=== PATIENT | female | born 1980 | race Caucasian/White ===

== ENCOUNTER 2020-01-12 08:07 | Emergency (ER) | payer BC, SELFPAY ==
[2020-01-12 08:18] VITALS: BP 106/74; PULSE 85; RESP 16; TEMP 36.8; O2SAT 100
--- NOTE | 2020-01-12 08:43 | ED.GENADULT ---
HPI - General Adult General Chief complaint: Ear Stated complaint: Right Ear Pain/Sore Throat Time Seen by Provider: 01/12/20 08:40 Source: patient and RN notes reviewed Mode of arrival: ambulatory Limitations: no limitations History of Present Illness HPI narrative: 39-year-old female presents with concern for sore throat and right ear pain that started yesterday. Reports green nasal drainage. Reports taking Motrin for pain. MD complaint: Sore throat Related Data Home Medications Medication Instructions Recorded Confirmed Benlysta 01/12/20 hydroxychloroquine [Plaquenil] 200 mg PO DAILY 01/12/20 01/12/20 levothyroxine 137 mcg PO DAILY 01/12/20 01/12/20 lisinopril 20 mg PO DAILY 01/12/20 01/12/20 norgestimate-ethinyl estradiol 1 tablet PO DAILY 01/12/20 01/12/20 [Estarylla] omeprazole 20 mg PO DAILY 01/12/20 01/12/20 Allergies Allergy/AdvReac Type Severity Reaction Status Date / Time latex Allergy Unknown Unknown Verified 01/12/20 08:29 Sulfa (Sulfonamide Allergy Unknown Rash Verified 01/12/20 08:29 Antibiotics) Review of Systems Review of Systems: Narrative: CONSTITUTIONAL: Reports malaise. Denies chills, sweats, or fever. EYES: Denies visual changes, redness, or discharge. ENT: Reports rhinorrhea, sore throat, right otalgia and sore throat. Denies congestion, sinus pain CARDIOVASCULAR: Denies chest pain, palpitations, or edema. RESPIRATORY: Denies cough or dyspnea. GASTROINTESTINAL: Denies abdominal pain, nausea, vomiting, diarrhea SKIN: Denies rash or itching. MUSCULOSKELETAL: Denies myalgia. NEUROLOGIC: Denies headache. All systems reviewed & are unremarkable except as noted in HPI and below PMFSH Family History Family History (Updated 07/12/16 @ 13:38 by DOCTOR UNKNOWN) Father Family history of thyroid disease Grandparent Family history of cardiovascular disease Social History Social History Smoking status: Never smoker Alcohol intake: current Gender identity (if verbalized by the patient): Female Comments At time of signature, agree with nursing past medical, surgical, social and family history. There is no relevant family history pertinent to the presenting complaint Exam Narrative: Exam Narrative: GENERAL: Well-appearing, well-nourished, and in no acute distress. HEAD: Normocephalic, atraumatic. EYES: PERRLA, conjunctivae clear ENT: Nares clear, turbinates pink, clear discharge. Mucous membranes moist. Left TM pearly su with dull light reflex right TM mildly erythematous; no tragal tenderness. Oropharynx erythematous without lesions. Tonsils not enlarged and without exudate, no drooling, no hoarseness, no trismus. NECK: Supple. No lymphadenopathy CHEST: Clear to auscultation, breath sounds equal. No wheezing, rhonchi, rales, or stridor. No respiratory distress, speaks in full sentences. HEART: Regular rate and rhythm. No murmur heard. Normal peripheral pulses. SKIN: Warm, dry, no rash. NEURO: Alert and oriented x3. PSYCH: Normal mood and affect Course Course Emergency Course: Patient is aware of diagnosis, understands and agrees to treatment plan. Anticipatory guidance given. Patient agrees to follow-up as directed and is aware of reasons to seek care at the emergency department. Portions of this record may have been created with voice recognition software Vital Signs Vital signs: Vital Signs Temperature 98.2 F 01/12/20 08:18 Pulse Rate 85 01/12/20 08:18 Respiratory Rate 16 01/12/20 08:18 Blood Pressure 106/74 01/12/20 08:18 Pulse Oximetry 100 01/12/20 08:18 Temperature 98.2 F 01/12/20 08:18 Pulse Rate 85 01/12/20 08:18 Respiratory Rate 16 01/12/20 08:18 Blood Pressure 106/74 01/12/20 08:18 Pulse Oximetry 100 01/12/20 08:18 Reviewed. Medical Decision Making MDM Narrative Medical decision making narrative: Differential diagnosis considered: Strep pharyngitis, allergic rhinitis, upper respiratory tract infection, sinusitis, rh
== END 2020-01-12 08:53 | disposition home or self-care (01) ==
PROVIDERS: Emergency Provider Nurse Practitioner; PCP Physician Assistant
DX: J02.0 Streptococcal pharyngitis (principal)
CPT/HCPCS: 87880; 99213; G0463

== ENCOUNTER 2020-04-17 11:03 | Emergency (ER) | payer BC, SELFPAY ==
--- NOTE | 2020-04-17 11:17 | ED.SKABFB ---
HPI - Skin/Abscess/Foreign Bdy General Chief complaint: Skin/Abscess/Foreign Body Stated complaint: Rash Time Seen by Provider: 04/17/20 11:18 Source: patient and RN notes reviewed History of Present Illness HPI narrative: Patient is a 39-year-old female who presents the urgent care with complaints of poison vita to the left upper leg, left forearm and right forearm. Patient states that she was working in her yard and noticed the areas on Saturday. Patient states that she is used Benadryl cream, oral Benadryl, calamine and hydrocortisone to the area without much improvement. Patient states that it just continues to spread . Patient states that she has not knowingly continued to come in contact with the poison vita. No other acute complaints. Denies any areas to the face or around the eyes. No acute distress noted. Patient aware the plan of care. Related Data Home Medications Medication Instructions Recorded Confirmed Benlysta 01/12/20 hydroxychloroquine [Plaquenil] 200 mg PO DAILY 01/12/20 01/12/20 levothyroxine 137 mcg PO DAILY 01/12/20 01/12/20 lisinopril 20 mg PO DAILY 01/12/20 01/12/20 norgestimate-ethinyl estradiol 1 tablet PO DAILY 01/12/20 01/12/20 [Estarylla] omeprazole 20 mg PO DAILY 01/12/20 01/12/20 Allergies Allergy/AdvReac Type Severity Reaction Status Date / Time latex Allergy Unknown Unknown Verified 01/12/20 08:29 Sulfa (Sulfonamide Allergy Unknown Rash Verified 01/12/20 08:29 Antibiotics) Review of Systems Review of Systems: Narrative: CONSTITUTIONAL: Denies fever, chills, or sweats. EYES: Denies visual changes, redness, or discharge. ENT: Denies rhinorrhea, congestion, sore throat, or otalgia. CARDIOVASCULAR: Denies chest pain, palpitations, or edema. RESPIRATORY: Denies cough or dyspnea. GASTROINTESTINAL: Denies abdominal pain, nausea, vomiting, or diarrhea. GENITOURINARY: Denies dysuria or hematuria. SKIN: Reports of itchy red rash/poison vita to left upper leg, left forearm, right forearm MUSCULOSKELETAL: Denies back pain, joint pain, or myalgia. NEUROLOGIC: Denies headache, numbness, or weakness. All other systems reviewed are negative, except as documented in HPI. [facility] Family History Family History (Updated 07/12/16 @ 13:38 by DOCTOR UNKNOWN) Father Family history of thyroid disease Grandparent Family history of cardiovascular disease Social History Social History Smoking status: Never smoker Alcohol intake: current Gender identity (if verbalized by the patient): Female Comments At the time of my signature, I reviewed and agree with the nursing past medical, surgical, social, and family history. There is no relevant family history pertinent to the patient complaint. Exam Narrative: Exam Narrative: GENERAL: This is a well-nourished, well-developed patient, in no apparent distress. HEAD: normocephalic, atraumatic. EYES: PERRL. Sclera clear/white. Vision is grossly intact. EARS: External ears normal NOSE: External nose normal with no obvious nasal discharge THROAT: Mucous membranes moist NECK: Neck supple SKIN: Nonpustular dermatitis noted to the left upper thigh, left calf, right forearm and left forearm NEURO: awake, alert, and oriented to person, place and time. There were no obvious focal neurologic abnormalities. EXTREMITIES: No clubbing, cyanosis, or edema. Course Vital Signs Vital signs: Vital Signs Temperature 97.7 F 04/17/20 11:24 Pulse Rate 110 H 04/17/20 11:24 Respiratory Rate 04/17/20 11:24 Blood Pressure 125/96 H 04/17/20 11:24 Pulse Oximetry 100 04/17/20 11:24 Temperature 97.7 F 04/17/20 11:24 Pulse Rate 110 H 04/17/20 11:24 Respiratory Rate 20 04/17/20 11:24 Blood Pressure 125/96 H 04/17/20 11:24 Pulse Oximetry 100 04/17/20 11:24 Reviewed?patient is informed that they may have pre-hypertension or hypertension based on a blood pressure reading in the department. I recommend the patient call the primary care pr
[2020-04-17 11:24] VITALS: BP 125/96; PULSE 110; RESP 20; TEMP 36.5; O2SAT 100
== END 2020-04-17 11:37 | disposition home or self-care (01) ==
PROVIDERS: Emergency Provider Nurse Practitioner Family; PCP Physician Assistant
DX: L23.7 Allergic contact dermatitis due to plants, except food (principal); I10 Essential (primary) hypertension
CPT/HCPCS: 99213; G0463

== ENCOUNTER → 2020-07-16 07:43 | Outpatient (CLI) | payer BC, SELFPAY ==
--- NOTE | ~2020-07-16 | MR_ITS ---
EXAMINATION: MR knee RT wo con DATE: 07/16/2020 08:35 INDICATION: Right knee pain. TECHNIQUE: Magnetic resonance imaging (MRI) of the right knee was performed without intravenous contr ast. Sequences included axial PD-weighted FS FSE, coronal PD-weighted FSE and PD-weighted FS FSE, sag ittal PD-weighted FSE, and sagittal T2-weighted FS FSE. COMPARISON: None. FINDINGS: Medial compartment: Medial meniscus is normal. There is shallow partial-thickness cartilage loss of femoral condyle invol ving the central articular surface with mild subchondral edema like marrow signal intensity. There is cartilage surface irregularity of tibial condyle. Lateral compartment: Lateral meniscus is normal. There is a 12 x 13 x 6 mm ganglion cyst anterior to anterior horn of late ral meniscus. There is cartilage surface irregularity of tibial condyle and femoral condyle. Patellofemoral compartment: There is deep partial thickness cartilage loss of patellar median ridge and lateral facet with modera te subchondral edema-like marrow signal intensity. Trochlear cartilage is normal. Ligaments and tendons: The anterior and posterior cruciate ligaments are normal. Medial collateral ligament and lateral luis ateral ligament complex are normal. There is mild patellar tendinopathy. Fluid: There is a small knee joint effusion. IMPRESSION: 1. Moderate chondrosis of patellofemoral compartment and mild chondrosis of medial and patellofemoral compartments. 2. Small knee joint effusion. 3. 13 mm ganglion cyst anterior to anterior horn of lateral meniscus. Reviewed, dictated and finalized at location A. IMPRESSION: 1. Moderate chondrosis of patellofemoral compartment and mild chondrosis of med ial and patellofemoral compartments. 2. Small knee joint effusion. 3. 13 mm ganglion cyst anterior to anterior horn of lateral meniscus.
--- NOTE | ~2020-07-16 | MR_ITS ---
EXAMINATION: MR knee LT wo con DATE: 07/16/2020 08:28 INDICATION: Left knee pain. TECHNIQUE: Magnetic resonance imaging (MRI) of the left knee was performed without intravenous contra st. Sequences included axial PD-weighted FS FSE, coronal PD-weighted FSE and PD-weighted FS FSE, sagi ttal PD-weighted FSE, and sagittal T2-weighted FS FSE. COMPARISON: Left knee radiographs 11/06/2011 FINDINGS: Medial compartment: Medial meniscus is normal. There is shallow partial-thickness cartilage loss of femoral condyle and t ibial condyle, worst at the central articular surfaces. Lateral compartment: Lateral meniscus is normal. Lateral compartment cartilage is normal. Patellofemoral compartment: There is shallow partial-thickness cartilage loss of patellar median ridge and lateral facet with mil d subchondral edema-like signal intensity. Trochlear cartilage is normal. Ligaments and tendons: The anterior and posterior cruciate ligaments are normal. There are changes of prior sprains of media l collateral ligament and fibular collateral ligament characterized by increased signal intensity pro ximally. There is mild patellar tendinopathy. Fluid: There is a small knee joint effusion. There is mild prepatellar and superficial infrapatellar bursiti s. IMPRESSION: 1. Mild chondrosis of medial and patellofemoral compartments. 2. Small knee joint effusion. Reviewed, dictated and finalized at location A.
== END ==
PROVIDERS: PCP Physician Assistant
DX: M25.461 Effusion, right knee (principal); M25.462 Effusion, left knee
CPT/HCPCS: 73721

== ENCOUNTER 2021-03-04 08:29 | Emergency (ER) | payer BC, SELFPAY ==
--- NOTE | 2021-03-04 08:38 | ED.SKABFB ---
HPI - Skin/Abscess/Foreign Bdy General Chief complaint: Skin/Abscess/Foreign Body Stated complaint: Rash Time Seen by Provider: 03/04/21 08:39 Source: patient and RN notes reviewed Mode of arrival: ambulatory Limitations: no limitations History of Present Illness HPI narrative: 40 yo female presents to the [facility] with C/O a rash to the left forearm for 1 week. Patient states that she had gotten into poison vita and it just keeps getting worse. Has tried multiple [id number] products with no relief. Small blisters noted. One 3 cm diameter red area center coverage of left forearm. Full range of motion of the wrist and elbow. Strong cyber analyst noted. Positive radial pulse. Capillary refill under 2 seconds. Related Data Home Medications Medication Instructions Recorded Confirmed Benlysta 01/12/20 hydroxychloroquine [Plaquenil] 200 mg PO DAILY 01/12/20 03/04/21 levothyroxine 137 mcg PO DAILY 01/12/20 03/04/21 lisinopril 20 mg PO DAILY 01/12/20 03/04/21 norgestimate-ethinyl estradiol 1 tablet PO DAILY 01/12/20 03/04/21 [Estarylla] omeprazole 20 mg PO DAILY 01/12/20 03/04/21 Allergies Allergy/AdvReac Type Severity Reaction Status Date / Time latex Allergy Unknown Unknown Verified 03/04/21 08:37 Sulfa (Sulfonamide Allergy Unknown Rash Verified 03/04/21 08:37 Antibiotics) Review of Systems Review of Systems: Narrative: CONSTITUTIONAL: Denies fever, chills, or sweats. CARDIOVASCULAR: Denies chest pain, palpitations, or edema. RESPIRATORY: Denies cough or dyspnea. SKIN: Blistery rash that itches. MUSCULOSKELETAL: Denies back pain, joint pain, or myalgia. NEUROLOGIC: Denies headache, numbness, or weakness. PSYCHIATRIC: Denies anxiety or depression. All other systems reviewed are negative, except as documented in HPI. [facility] Family History Family History Father Family history of thyroid disease Grandparent Family history of cardiovascular disease Social History Social History Smoking status: Never smoker Alcohol intake: current Gender identity (if verbalized by the patient): Female Comments At the time of my signature, I reviewed and agree with the nursing past medical, surgical, social, and family history. There is no relevant family history pertinent to the patient complaint. Exam Narrative: Exam Narrative: GENERAL: This is a well-nourished, well-developed patient, in no apparent distress. HEAD: normocephalic, atraumatic. EYES: PERRL. Sclera clear/white. Vision is grossly intact. EARS: External ears normal. CARDIOVASCULAR: Regular rate and rhythm without murmurs, gallops, or rubs. RESPIRATORY: Clear to auscultation. Breath sounds equal bilaterally. No wheezes, rales, or rhonchi. SKIN: warm and dry. blistery rash left forearm otherwise good texture and turgor. Red warm area to the left forearm 3cm in Diameter. NEURO: awake, alert, and oriented to person, place and time. There were no obvious focal neurologic abnormalities. EXTREMITIES: No joint tenderness, effusion, or edema noted. BACK: Nontender without deformity. Skin: Full body images: 1. 3cm red warm area with small fluid filled blisters that extend outward. Course Vital Signs Vital signs: Vital Signs Temperature 97.1 F L 03/04/21 08:39 Pulse Rate 75 03/04/21 08:39 Respiratory Rate 16 03/04/21 08:39 Blood Pressure 146/98 H 03/04/21 08:39 Temperature 97.1 F L 03/04/21 08:39 Pulse Rate 75 03/04/21 08:39 Respiratory Rate 16 03/04/21 08:39 Blood Pressure 146/98 H 03/04/21 08:39 Reviewed. Patient reports taking blood pressure medication daily and states this is her normal blood pressure MDM - Skin/Abscess/Foreign Bdy MDM Narrative Medical decision making narrative: Discharge instructions reviewed with patient, as well as provided in writing per nursing staff. The instructions also include specific and
[2021-03-04 08:39] VITALS: BP 146/98; PULSE 75; RESP 16; TEMP 36.2
== END 2021-03-04 08:50 | disposition home or self-care (01) ==
PROVIDERS: Emergency Provider Nurse Practitioner; PCP Physician Assistant
DX: L23.7 Allergic contact dermatitis due to plants, except food (principal); I10 Essential (primary) hypertension; E03.9 Hypothyroidism, unspecified; M32.9 Systemic lupus erythematosus, unspecified
CPT/HCPCS: 99213; G0463

== ENCOUNTER 2021-07-25 18:05 | Emergency (ER) | payer BC, SELFPAY ==
[2021-07-25 18:32] VITALS: BP 110/81; PULSE 104; RESP 16; TEMP 36.3; O2SAT 99
--- NOTE | 2021-07-25 19:09 | ED.SKABFB ---
HPI - Skin/Abscess/Foreign Bdy General Chief complaint: Skin/Abscess/Foreign Body Stated complaint: sores on scalp Time Seen by Provider: 07/25/21 19:09 Source: patient, RN notes reviewed and old records reviewed Mode of arrival: ambulatory Limitations: no limitations History of Present Illness HPI narrative: 40 year old female who presents to [facility] with complaints of lesion to the back of her head on scalp that has been there for about 2 weeks. She bumped it while brushing her hair and had some drainage from it. Patient states that she gets these lesions on her head and also gets small mouth ulcers usually twice a year and they usually go away, thinks are related to her Lupus.Patient reports that area to back of scalp is tender and is concerned for possible infection. She denies any fevers, chills or any sweats or exacerbation of Lupus symptoms. Related Data Home Medications Medication Instructions Recorded Confirmed hydroxychloroquine [Plaquenil] 200 mg PO DAILY 01/12/20 07/25/21 levothyroxine 137 mcg PO DAILY 01/12/20 07/25/21 lisinopril 20 mg PO DAILY 01/12/20 07/25/21 norgestimate-ethinyl estradiol 1 tablet PO DAILY 01/12/20 07/25/21 [Estarylla] omeprazole 20 mg PO DAILY 01/12/20 07/25/21 Allergies Allergy/AdvReac Type Severity Reaction Status Date / Time latex Allergy Mild Rash Verified 07/25/21 18:50 Sulfa (Sulfonamide Allergy Mild Hives Verified 07/25/21 18:50 Antibiotics) Review of Systems Review of Systems: CONSTITUTIONAL: Denies fever, chills, or sweats. EYES: Denies visual changes, redness, or discharge. ENT: Denies rhinorrhea, congestion, sore throat, or otalgia. CARDIOVASCULAR: Denies chest pain, palpitations, or edema. RESPIRATORY: Denies cough or dyspnea. GASTROINTESTINAL: Denies abdominal pain, nausea, vomiting, or diarrhea. GENITOURINARY: Denies dysuria or hematuria. SKIN: Denies rash or itching.small raised scabbed area noted to back of head in scalp MUSCULOSKELETAL: Denies back pain, joint pain, or myalgia. NEUROLOGIC: Denies headache, numbness, or weakness. PSYCHIATRIC: History of anxiety or depression. All systems reviewed & are unremarkable except as noted in HPI and below PMFSH Past Medical History Medical History (Updated 07/29/21 @ 13:10 by Mishel Bentley NP) Anxiety and depression GERD (gastroesophageal reflux disease) Hypertension Hypothyroid Lupus (systemic lupus erythematosus) UTI (urinary tract infection) Surgical History Surgical History (Updated 07/29/21 @ 13:02 by Mishel Bentley NP) No history of previous surgery Family History Family History (Updated 07/29/21 @ 13:03 by Mishel Bentley NP) Father Family history of thyroid disease Grandparent Family history of cardiovascular disease Other Diabetes mellitus Social History Social History (Updated 07/29/21 @ 10:47 by Mishel Bentley NP) Smoking status: Never smoker Alcohol intake: current Substance use: never Living arrangements: with family Gender identity (if verbalized by the patient): Female Comments At time of signature, agree with nursing past medical, surgical, social and family history. There is no relevant family history pertinent to the presenting complaint Exam Narrative: GENERAL: Well-appearing, well-nourished, and in no acute distress. HEAD: Normocephalic, atraumatic. EYES: PERRLA and EOMI. ENT: Nares clear, no rhinorrhea or epistaxis. Mucous membranes moist. NECK: Supple.no lymphadenopathy CHEST: Clear to auscultation. No respiratory distress.SAO2 99% on room air HEART: Regular rate and rhythm. No murmur heard. Normal peripheral pulses. ABDOMEN: Soft, nontender, nondistended, normal active bowel sounds. EXTREMITIES: Normal range of motion. No edema. SKIN: Warm, dry, no rash.1cm scabbed lesion to the back of head on scalp with no drainage noted,no redness or induration of tissue, some tenderness reported on palpation NEURO: No focal deficits. Alert and oriente
== END 2021-07-25 19:30 | disposition home or self-care (01) ==
PROVIDERS: Emergency Provider Registered Nurse
DX: L02.811 Cutaneous abscess of head [any part, except face] (principal); I10 Essential (primary) hypertension; E03.9 Hypothyroidism, unspecified; M32.9 Systemic lupus erythematosus, unspecified
CPT/HCPCS: 99213; G0463

== ENCOUNTER 2022-12-22 09:40 | Outpatient (CLI) | payer BC, SELFPAY ==
[2022-12-22 10:06] LABS: Hematocrit 38.7 % (37.0-47.0); Hemoglobin 12.7 g/dL (12.0-15.0)
== END 2022-12-22 09:41 | disposition home or self-care (01) ==
LOC: ANHLAB 09:41
PROVIDERS: PCP Physician Assistant; Visit Provider Obstetrics & Gynecology
DX: N92.6 Irregular menstruation, unspecified (principal); Z01.818 Encounter for other preprocedural examination
CPT/HCPCS: 36415; 85014; 85018

== ENCOUNTER 2022-12-28 02:58 | Day surgery (SDC) | payer BC, SELFPAY ==
[2022-12-20 16:15] VITALS: BMI 33.7
--- NOTE | 2022-12-20 16:38 | PC.NURSE ---
Report to the Outpatient Waiting Room, entrance under the green pavilion located off [facility], at time 0600 on date 12/28/22. Planned Procedure Time: 0730_. Time changes happen often and if your time is changed the preop area will call you the afternoon before. - You and your visitor will be asked to self-screen and do not enter if you have any COVID symptoms. - Only one visitor is requested with a max of two and NO children visitors are allowed at this time. - The patient visitor may be requested to leave or wait in car when not with patient due to distancing restrictions. - A mask is optional within the hospital. Patients may have clear liquids (water, carbonated beverages, clear teas, apple juice) until 3 hours prior to surgery with a maximum of 20 ounces. - No food from midnight until time of surgery - Infants may have breast milk until 4 hours before surgery, infant formula 6 hours prior to surgery. - Children will be allowed to drink immediately following surgery. If applicable, please bring a bottle or sippy cup to assist with drinking. Juice, water, soda, and popsicles are readily available. For infants on formula, please bring formula the day of surgery. Pacifiers are allowed. Take the following medications with a SIP of water the morning of surgery: _levothyroxine, wellbutrin__ Medications to discontinue per physician Date to take last dose Please no make-up, nail vietnamese, hairspray, perfume, deodorant, or body powder the day of surgery. No jewelry (including any body piercings) or valuables the day of surgery, leave them at home. Please take a shower or bath the night before, or the morning of, surgery with an antibacterial soap. Wear comfortable, loose fitting clothing. Children are encouraged to wear pajamas. - Jewelry must be removed prior to entering the operating room. Rings and piercings that are not removed may be cut off. - The hospital will not accept responsibility for valuables. - Please leave all valuables, including medications, at home the day of surgery. If you are going home after surgery, a licensed refrigerated national truck driver must drive you home. - NO public transportation without another adult if you receive anesthesia. - We recommend that an adult stay with you for 24 hours following discharge. - We also recommend that you do not drive, make important decision, drink alcoholic beverages, or take any drugs that were not prescribed by your health care provider for at least 24 hours after your discharge time. For Pediatric surgeries, we recommend two adults accompany the child home. Follow any additional instructions given to you from your surgeon. If you or anyone in your household have experienced Covid symptoms in the past week, please notify your surgeon or the nurse liaison at the phone number below for possible testing. Telephone instructions given to _Sho King_and asked if any additional questions and then verbalized understanding. Patient advised to call surgeon office or pre surgery nurse liaison [phone] if any additional questions.
--- NOTE | 2022-12-25 12:23 | PM.IMHP ---
H&P: HPI History of Present Illness Date/Time: 12/25/22 12:23 Chief Complaint: Heavy bleeding Narrative: This is a 40 female 1 para 2 admitted for hysteroscopy dilatation curettage secondary to excessive heavy bleeding and thickening in the uterus. The patient complained of heavy bleeding and has a hemoglobin. Ultrasound shows an endometrial canal it appears thickened heterogenous with increased blood flow within the endometrial canal. Risks and benefits of this procedure reviewed including not exclusive of aspiration pneumonia bleeding transfusion infection, perforation injury to bowel, bladder, ureters, or other internal organs with need for open laparotomy. She received the ACOG handout entitled hysteroscopy as well as dilatation curettage respectively. She had all questions answered and asked to proceed PMFSH Past Medical History Medical History Anxiety and depression GERD (gastroesophageal reflux disease) Hypertension Hypothyroid Lupus (systemic lupus erythematosus) UTI (urinary tract infection) Surgical History Surgical History No history of previous surgery Family History Family History Father Family history of thyroid disease Grandparent Family history of cardiovascular disease Other Diabetes mellitus Social History Social History Years smoked: 0.5 Smoking status: Former smoker Tobacco type: cigarettes Smoking end date: 12/02/02 Alcohol intake: current Substance use: never Living arrangements: with family Gender identity (if verbalized by the patient): Female Spiritual care concerns: No Meds Home Medications and Allergies Home Medications Medication Instructions Recorded Confirmed Type hydroxychloroquine 200 mg tablet 200 mg PO DAILY 01/12/20 12/20/22 History (Plaquenil) levothyroxine 137 mcg tablet 137 mcg PO DAILY 01/12/20 12/20/22 History lisinopril 20 mg tablet 30 mg PO DAILY 01/12/20 12/20/22 History omeprazole 20 mg tablet,delayed 20 mg PO DAILY 01/12/20 12/20/22 History release belimumab 200 mg/mL subcutaneous 200 mg subcut WEEKLY 12/20/22 12/20/22 History auto-injector (Benlysta) bupropion HCl 150 mg 24 hr tablet, 150 mg PO DAILY 12/20/22 12/20/22 History extended release etonogestrel 0.12 mg-ethinyl 1 vag ring vaginal DAILY 12/20/22 12/20/22 History estradiol 0.015 mg/24 hr vaginal ring (EluRyng) rimegepant 75 mg disintegrating 75 mg PO PRN Migraine Headache 12/20/22 History tablet (Nurtec ODT) Allergies Allergy/AdvReac Type Severity Reaction Status Date / Time latex Allergy Mild Rash Verified 07/25/21 18:50 Sulfa (Sulfonamide Allergy Mild Hives Verified 07/25/21 18:50 Antibiotics) Exam Const: General: cooperative, healthy appearing, comfortable and overweight Orientation/consciousness: oriented to person, oriented to place and oriented to time HENMT: Head: normal to inspection Resp: Effort & Inspection: normal respiratory effort Cardio: Rate: regular rate Rhythm: regular rhythm Heart sounds: S1 normal heart sound present and S2 normal heart sound present GI: Inspection: normal to inspection Auscultation: normal bowel sounds : External Female Exam: normal external appearance Speculum Exam - Vagina: normal appearance of the vagina Speculum Exam - Cervix: normal appearance of the cervix Bimanual exam- vagina & uterus: uterine size normal Bimanual Exam- Adnexa, other: normal adnexae Assessment and Plan Assessment and plan (1) Vaginal bleeding: Code(s): N93.9 - Abnormal uterine and vaginal bleeding, unspecified Status: Acute Plan Hysteroscopy/dilatation and curettage
--- NOTE | 2022-12-28 06:18 | WPDHPUPDATE1 ---
History and Physical Update Update Date/Time: 12/28/22 06:18 History and Physical has been reviewed, including an updated exam of the patient. There are NO changes in the patient's condition. Risks, benefits, and alternatives have been discussed and questions answered. Patient agrees to proceed with procedure.
[2022-12-28 06:30] VITALS: BP 147/102; PULSE 84; RESP 16; TEMP 36.6; O2SAT 100
[2022-12-28] MEDS: ACETAMINOPHEN 500 MG TABLET 1000 MG PO (06:43)
[2022-12-28] MEDS: LACTATED RINGERS 1,000 ML 30 ML IV CONT (06:45)
--- NOTE | 2022-12-28 07:32 | WPDANESEPPF ---
Anes - Initial Pre Proc Eval Procedure: Operation Date: 12/28/22 08:15 Proposed Procedures p Hysteroscopy with Dilation and Curettage - Kaveh Mckeon MD Date/Time: 12/28/22 07:32 Surgeon: Kaveh Mckeon MD Pre Op Diagnosis: Irrg Bleeding Patient Data Age: 42 Gender: F Height: 1.68 m Weight: 97.9 kg Last Vital Signs Temp 36.6 C 12/28/22 06:30 Pulse 84 12/28/22 06:30 Resp 16 12/28/22 06:30 BP 147/102 H 12/28/22 06:30 Pulse Ox 100 12/28/22 06:30 O2 Del Method Room Air 12/28/22 06:30 Allergies Allergy/AdvReac Type Severity Reaction Status Date / Time latex Allergy Mild Rash Verified 12/28/22 07:01 Sulfa (Sulfonamide Allergy Mild Hives Verified 12/28/22 07:01 Antibiotics) Home Medications Medication Instructions Recorded Confirmed Type hydroxychloroquine 200 mg tablet 200 mg PO DAILY 01/12/20 12/28/22 History (Plaquenil) levothyroxine 137 mcg tablet 137 mcg PO DAILY 01/12/20 12/28/22 History lisinopril 20 mg tablet 30 mg PO DAILY 01/12/20 12/28/22 History omeprazole 20 mg tablet,delayed 20 mg PO DAILY 01/12/20 12/28/22 History release belimumab 200 mg/mL subcutaneous 200 mg subcut WEEKLY 12/20/22 12/28/22 History auto-injector (Benlysta) bupropion HCl 150 mg 24 hr tablet, 150 mg PO DAILY 12/20/22 12/28/22 History extended release etonogestrel 0.12 mg-ethinyl 1 vag ring vaginal DAILY 12/20/22 12/28/22 History estradiol 0.015 mg/24 hr vaginal ring (EluRyng) rimegepant 75 mg disintegrating 75 mg PO PRN Migraine Headache 12/20/22 History tablet (Nurtec ODT) hydrocodone 5 mg-acetaminophen 325 1 tablet PO Q4H PRN pain #20 tabs 12/28/22 Rx mg tablet Patient hx anesthesia problems: none Family hx anesthesia problems: none Results Review: All pre-operative results and documents have been reviewed as part of the pre-operative evaluation. [facility] Past Medical History Medical History Anxiety and depression GERD (gastroesophageal reflux disease) Hypertension Hypothyroid Lupus (systemic lupus erythematosus) UTI (urinary tract infection) Surgical History Surgical History No history of previous surgery Family History Family History Father Family history of thyroid disease Grandparent Family history of cardiovascular disease Other Diabetes mellitus Social History Social History Years smoked: 0.5 Smoking status: Former smoker Tobacco type: cigarettes Smoking end date: 12/02/02 Alcohol intake: current Substance use: never Living arrangements: with family Gender identity (if verbalized by the patient): Female Spiritual care concerns: No Anes - Eval Final PreProcedure Day of Procedure 12/28/22 07:32 Patient weight: obese Heart: regular rate and rhythm Lungs: clear to auscultation Airway: Mallampati scale class II Neurological: alert and oriented Last oral intake: >/= 8 hours ASA classification: III Emergent: no Anesthetic plan: proceed Anesthesia type and monitoring: general ETT and standard monitoring Results Review: All pre-operative results and documents have been reviewed as part of the pre-operative evaluation. Informed Consent: The patient's anesthetic plan and its attendant risks and benefits were discussed with the patient/family/POA. Questions were solicited and answers provided to the satisfaction of the patient/family/POA.
[2022-12-28] MEDS: LIDOCAINE HCL 1% PF 30 ML VIAL INFILTRATE (08:27)
--- NOTE | 2022-12-28 08:36 | W.PM.PROC2 ---
Procedure Note - Detailed Date of Procedure 12/28/22 Pre-op Diagnosis Irrg Bleeding Post-op Diagnosis Other (Uterine polyp) Procedure Performed hysteroscopy/ polypectomy/D and C Surgeon Kaveh Mckeon MD Anesthesia MAC and Local Indications this is a 42-year-old female with irregular heavy bleeding refractory to medical therapy Findings uterus sounds to 8cm. A benign-appearing uterine polyp was seen at the fundus Description of Procedure patient was prepped draped in normal sterile fashion placed in dorsal lithotomy position. Under excellent IV sedation weighted speculum placed post fornix vagina. Anterior lip of cervix grasped with single-tooth tenaculum. 2.5cc of 1% xylocaine anesthesia placed at 2, 4, 8, 10:00 a.m. of the cervix. Uterus sounded 8cm. Serial dilatation with fragmented dilators performed followed passes the 5mm visualizing hysteroscope. A the uterine polyp was seen in the polyp forceps was passed it was removed piecemeal. The uterus scraped over the entire 360?. The instruments removed blood loss estimated 5cc all sponge, needle, instrument counts were correct. There were no immediate complications Estimated Blood Loss 5 Tourniquet Time 5 Drains No Packing No Pathology Yes Complications No immediate complications Condition Stable Disposition PACU
[2022-12-28 08:37] VITALS: BP 144/104; PULSE 81; RESP 16; O2SAT 99
[2022-12-28 09:05] VITALS: BP 145/105; PULSE 70; RESP 18
[2022-12-28] MEDS: oxyCODONE HCL (*CRX) 5 MG TAB IR PO (09:18)
[2022-12-28 09:35] VITALS: BP 137/99; PULSE 83; RESP 18
== END 2022-12-28 09:42 | disposition home or self-care (01) ==
PROVIDERS: PCP Physician Assistant; Visit Provider Obstetrics & Gynecology
PROC: 0U5B8ZZ Destruction of Endometrium, Via Natural or Artificial Opening Endoscopic (ICD-10-PCS; CPT 58563; principal; 2022-12-28 08:15)
DX: N93.9 Abnormal uterine and vaginal bleeding, unspecified (principal); N84.0 Polyp of corpus uteri; I10 Essential (primary) hypertension; E03.9 Hypothyroidism, unspecified; M32.9 Systemic lupus erythematosus, unspecified; K21.9 Gastro-esophageal reflux disease without esophagitis; F41.8 Other specified anxiety disorders; Z87.891 Personal history of nicotine dependence; E66.9 Obesity, unspecified; Z68.34 Body mass index [BMI] 34.0-34.9, adult
CPT/HCPCS: 58558; 88305; A9270; J1885; J2250; J2405; J2704; J3010; J7120

== ENCOUNTER 2023-05-13 15:36 | Emergency (ER) | payer BC, SELFPAY ==
--- NOTE | ~2023-05-13 | XR_ITS ---
EXAMINATION: XR tibia fibula LT 2V DATE: 05/13/2023 16:54 INDICATION: Left lower leg cellulitis. TECHNIQUE: 2 views of left tibia and fibula on 4 radiographs were obtained. COMPARISON: Left knee radiographs 11/06/2011 FINDINGS: Bone alignment is normal. No fracture. There is no evidence of osteomyelitis. There is mild tricompartmental osteoarthritis of left knee characterized by tiny marginal osteophytes. No joint sp dequan scarring. No knee joint effusion. IMPRESSION: 1. Mild left knee osteoarthritis. Reviewed, dictated and finalized at location A.
[2023-05-13 15:47] VITALS: BP 146/95; PULSE 112; RESP 16; TEMP 36.4; O2SAT 100
--- NOTE | 2023-05-13 16:11 | ED.GENADULT ---
HPI - General Adult General Chief complaint: Wound/Laceration Stated complaint: wound Time Seen by Provider: 05/13/23 15:52 Source: patient Mode of arrival: ambulatory Limitations: no limitations History of Present Illness HPI narrative: This is a 42-year-old female with PMH of lupus, HTN, hypothyroid who presents to the ED with chief complaint of left ankle worsening cellulitis. Patient was seen recently at an urgent care for cellulitis and has been taking Keflex regularly. Originally she was walking her dog when the leash got caught around her ankle and burn to the ankle. She had a subsequent cellulitis that developed. She has also been using the prescribed Silvadene regularly. Today she states the area is becoming more painful and she is having spreading redness around the wound bed despite taking the antibiotics. Denies any fevers, chills, nausea, vomiting, systemic signs or symptoms She has past medical history of lupus and takes hydroxychloroquine and a weekly biologic injection. Related Data Home Medications Medication Instructions Recorded Confirmed hydroxychloroquine 200 mg tablet 200 mg PO DAILY 01/12/20 12/28/22 (Plaquenil) levothyroxine 137 mcg tablet 137 mcg PO DAILY 01/12/20 12/28/22 lisinopril 20 mg tablet 30 mg PO DAILY 01/12/20 12/28/22 omeprazole 20 mg tablet,delayed 20 mg PO DAILY 01/12/20 12/28/22 release belimumab 200 mg/mL subcutaneous 200 mg subcut WEEKLY 12/20/22 12/28/22 auto-injector (Benlysta) bupropion HCl 150 mg 24 hr tablet, 150 mg PO DAILY 12/20/22 12/28/22 extended release etonogestrel 0.12 mg-ethinyl 1 vag ring vaginal DAILY 12/20/22 12/28/22 estradiol 0.015 mg/24 hr vaginal ring (EluRyng) rimegepant 75 mg disintegrating 75 mg PO PRN Migraine Headache 12/20/22 tablet (Nurtec ODT) Allergies Allergy/AdvReac Type Severity Reaction Status Date / Time latex Allergy Mild Rash Verified 12/28/22 07:01 Sulfa (Sulfonamide Allergy Mild Hives Verified 12/28/22 07:01 Antibiotics) Review of Systems Review of Systems: CONSTITUTIONAL: Denies fever, chills, or sweats. EYES: Denies visual changes, redness, or discharge. ENT: Denies rhinorrhea, congestion, sore throat, or otalgia. CARDIOVASCULAR: Denies chest pain, palpitations, or edema. RESPIRATORY: Denies cough or dyspnea. GASTROINTESTINAL: Denies abdominal pain, nausea, vomiting, or diarrhea. GENITOURINARY: Denies dysuria or hematuria. SKIN: See HPI MUSCULOSKELETAL: Denies back pain, joint pain, or myalgia. NEUROLOGIC: Denies headache, numbness, dizziness, or weakness. PSYCHIATRIC: Denies anxiety or depression. [facility] Past Medical History Medical History Anxiety and depression GERD (gastroesophageal reflux disease) Hypertension Hypothyroid Lupus (systemic lupus erythematosus) UTI (urinary tract infection) Surgical History Surgical History No history of previous surgery Family History Family History Father Family history of thyroid disease Grandparent Family history of cardiovascular disease Other Diabetes mellitus Social History Social History Years smoked: 0.5 Smoking status: Former smoker Tobacco type: cigarettes Smoking end date: 12/02/02 Alcohol intake: current Substance use: never Living arrangements: with family Gender identity (if verbalized by the patient): Female Spiritual care concerns: No Exam Narrative: GENERAL: Well-appearing, well-nourished, and in no acute distress. HEAD: Normocephalic, atraumatic. EYES: PERRLA and EOMI. ENT: Nares clear, no rhinorrhea or epistaxis. Mucous membranes moist. Oropharynx without tonsillar hypertrophy exudate or other lesions. NECK: Supple. No adenopathy or masses. CHEST: No respiratory distress. Cl
[2023-05-13 16:56] LABS: Basophils Percent Auto 0.3 % (0.2-1.2); Eosinophils Percent Auto 0.2 % (0-4.4); Hematocrit 37.9 % (37.0-47.0); Hemoglobin 12.8 g/dL (12.0-15.0); Immature Granulocyte Absolute 0.02 K/mm3 (0.00-0.031); Immature Granulocyte Percent A 0.3 % (0-0.5); Lymphocytes Absolute Auto 0.99 K/mm3 (0.9-3.2); Lymphocytes Percent Auto 14.9 % (18.3-44.2); Mean Corpuscular HGB Conc 33.8 g/dl (32-36); Mean Corpuscular Hemoglobin 31.4 pg (26-34); Mean Corpuscular Volume 92.9 fl (80-100); Mean Platelet Volume 9.4 fl (7.4-10.4); Monocytes Absolute Auto 0.4 K/mm3 (0.1-0.6); Monocytes Percent Auto 5.9 % (2.6-8.5); Neutrophils Absolute Auto 5.2 K/mm3 (1.3-6.7); Neutrophils Percent Auto 78.4 % (45.5-73.1); Platelet Count Result 362 k/mm3 (150-375); Red Blood Count 4.08 M/mm3 (4.2-5.4); Red Cell Distribution Width 13.2 % (11.5-14.5); White Blood Count 6.7 K/mm3 (4.5-10.0)
[2023-05-13 17:05] LABS: Alanine Aminotransferase 19 U/L (6-35); Albumin Level 4.1 g/dL (3.5-5.1); Alkaline Phosphatase 90 U/L (38-126); Anion Gap 8 mmol/L (8-16); Aspartate Amino Transferase 28 U/L (14-36); Bilirubin,Total 0.4 mg/dL (0.2-1.3); Blood Urea Nitrogen 15 mg/dL (7-17); Calcium 8.8 mg/dL (8.4-10.2); Carbon Dioxide 26 mmol/L (22-30); Chloride 104 mmol/L (98-107); Estimated CRCL calculation 154 ml/min; Estimated Glomerular Filt Rate > 60; Glucose 107 mg/dL (65-110); Potassium 3.7 mmol/L (3.4-5.0); Sodium 138 mmol/L (137-145)
[2023-05-13] MEDS: SODIUM CHLORIDE 0.9% IV 1,000 ML 999 ML IV CONT (17:05)
[2023-05-13] MEDS: KETOROLAC 15 MG/ML VIAL (*BKC) IV PUSH (17:05)
== END 2023-05-13 20:00 | disposition home or self-care (01) ==
PROVIDERS: Emergency Provider Physician Assistant; PCP Physician Assistant
DX: L03.116 Cellulitis of left lower limb (principal); R23.4 Changes in skin texture; I10 Essential (primary) hypertension; E03.9 Hypothyroidism, unspecified; M32.9 Systemic lupus erythematosus, unspecified; K21.9 Gastro-esophageal reflux disease without esophagitis; F41.9 Anxiety disorder, unspecified; F32.A Depression, unspecified; Z87.440 Personal history of urinary (tract) infections; Z87.891 Personal history of nicotine dependence; M17.12 Unilateral primary osteoarthritis, left knee
CPT/HCPCS: 36415; 73590; 80053; 85025; 96361; 96365; 96366; 96375; 99284; J1885; J3370; J7030

== ENCOUNTER 2023-06-10 16:26 | Emergency (ER) | payer BC, SELFPAY ==
[2023-06-10 16:29] VITALS: BP 135/91; PULSE 94; RESP 18; TEMP 36.5; O2SAT 100
[2023-06-10 18:28] LABS: Basophils Percent Auto 0.6 % (0.2-1.2); Hematocrit 37.2 % (37.0-47.0); Hemoglobin 12.2 g/dL (12.0-15.0); Immature Granulocyte Absolute 0.03 K/mm3 (0.00-0.031); Immature Granulocyte Percent A 0.6 % (0-0.5); Lymphocytes Absolute Auto 1.07 K/mm3 (0.9-3.2); Mean Corpuscular HGB Conc 32.8 g/dl (32-36); Mean Corpuscular Hemoglobin 30.7 pg (26-34); Mean Corpuscular Volume 93.5 fl (80-100); Mean Platelet Volume 9.7 fl (7.4-10.4); Monocytes Absolute Auto 0.6 K/mm3 (0.1-0.6); Monocytes Percent Auto 10.8 % (2.6-8.5); Neutrophils Absolute Auto 3.4 K/mm3 (1.3-6.7); Platelet Count Result 329 k/mm3 (150-375); Red Blood Count 3.98 M/mm3 (4.2-5.4); Red Cell Distribution Width 12.6 % (11.5-14.5); White Blood Count 5.1 K/mm3 (4.5-10.0)
[2023-06-10 18:41] LABS: Alanine Aminotransferase 33 U/L (6-35); Albumin Level 3.8 g/dL (3.5-5.1); Alkaline Phosphatase 93 U/L (38-126); Anion Gap 3 mmol/L (8-16); Aspartate Amino Transferase 36 U/L (14-36); Bilirubin,Total 0.3 mg/dL (0.2-1.3); Blood Urea Nitrogen 10 mg/dL (7-17); Calcium 8.8 mg/dL (8.4-10.2); Carbon Dioxide 29 mmol/L (22-30); Chloride 106 mmol/L (98-107); Estimated CRCL calculation 105 ml/min; Estimated Glomerular Filt Rate > 60; Glucose 94 mg/dL (65-110); Lipase 227 U/L (23-300); Potassium 3.6 mmol/L (3.4-5.0); Sodium 138 mmol/L (137-145)
[2023-06-10 19:08] LABS: Appearance Urine Cloudy (Clear); Color Urine Yellow (Yellow)
[2023-06-10 19:09] LABS: Bacteria Urine None Seen /hpf; Bilirubin Urine Negative (Negative); Blood Urine Negative (Negative); Glucose Urine UA Negative (Negative); Ketones Urine Negative (Negative); Leukocyte Esterase Ur Negative LEU/UL (Negative); Need Manual Microscopic Reviewed; Nitrate Urine Negative (Negative); Protein Urine Trace mg/dL (Negative); RBC Urine 0-2 /hpf (0-2); Specific Grav Ur 1.017 (1.001-1.035); Squamous Epithelial Cell Urine Occasional /hpf (Few); Urobilinogen Urine 0.2 mg/dL (<2.0); WBC Urine 0-5 /hpf; pH Urine 5.5 (5.0-9.0)
[2023-06-10 19:21] LABS: Add Urine Microscopic? YES
[2023-06-10 19:34] VITALS: BP 154/103; PULSE 65
[2023-06-10 19:35] VITALS: BP 146/110; PULSE 61
[2023-06-10 19:36] VITALS: BP 141/113; PULSE 84
--- NOTE | 2023-06-10 19:41 | ED.NAVMDI ---
HPI - Nausea/Vomiting/Diarrhea General Chief complaint: Nausea/Vomiting/Diarrhea Stated complaint: diarrhea with some blood Time Seen by Provider: 06/10/23 19:20 Source: patient Mode of arrival: ambulatory Limitations: no limitations History of Present Illness HPI Narrative: Patient is a 42 y/o female who presents to the ED with c/o diarrhea. Patient reports having diarrhea for the last 11 days. She reports having anywhere from 2-3 bowel movements a day. She states sometimes it is more liquid, sometimes formed but still very soft. She states it has been somewhat green in color. Denies significant odor. Patient reports mild abdominal cramping that occurs briefly just before having a bowel movement, but otherwise denies any abdominal pain. She did notice a very small blood clot in her stool yesterday, denied any blood today. Denied significant pain with bowel movements. Her doctor then sent her here for further evaluation. Patient denies any nausea, vomiting, fevers, weakness. Patient recently finished courses of Keflex and clindamycin for left ankle cellulitis. She finished the antibiotics around 1 week prior to the diarrhea beginning. Related Data Home Medications Medication Instructions Recorded Confirmed hydroxychloroquine 200 mg tablet 200 mg PO DAILY 01/12/20 12/28/22 (Plaquenil) levothyroxine 137 mcg tablet 137 mcg PO DAILY 01/12/20 12/28/22 lisinopril 20 mg tablet 30 mg PO DAILY 01/12/20 12/28/22 omeprazole 20 mg tablet,delayed 20 mg PO DAILY 01/12/20 12/28/22 release belimumab 200 mg/mL subcutaneous 200 mg subcut WEEKLY 12/20/22 12/28/22 auto-injector (Benlysta) bupropion HCl 150 mg 24 hr tablet, 150 mg PO DAILY 12/20/22 12/28/22 extended release etonogestrel 0.12 mg-ethinyl 1 vag ring vaginal DAILY 12/20/22 12/28/22 estradiol 0.015 mg/24 hr vaginal ring (EluRyng) rimegepant 75 mg disintegrating 75 mg PO PRN Migraine Headache 12/20/22 tablet (Nurtec ODT) Allergies Allergy/AdvReac Type Severity Reaction Status Date / Time latex Allergy Mild Rash Verified 06/10/23 19:38 Sulfa (Sulfonamide Allergy Mild Hives Verified 06/10/23 19:38 Antibiotics) Review of Systems Review of Systems: CONSTITUTIONAL: Denies fever, chills, or sweats. CARDIOVASCULAR: Denies chest pain. RESPIRATORY: Denies dyspnea. GASTROINTESTINAL: See HPI. GENITOURINARY: Denies dysuria or hematuria. SKIN: Denies rash or itching. MUSCULOSKELETAL: Denies back pain, joint pain, or myalgia. All systems reviewed & are unremarkable except as noted in HPI and below PMFSH Past Medical History Medical History Anxiety and depression GERD (gastroesophageal reflux disease) Hypertension Hypothyroid Lupus (systemic lupus erythematosus) UTI (urinary tract infection) Surgical History Surgical History No history of previous surgery Family History Family History Father Family history of thyroid disease Grandparent Family history of cardiovascular disease Other Diabetes mellitus Social History Social History Years smoked: 0.5 Smoking status: Former smoker Tobacco type: cigarettes Smoking end date: 12/02/02 Alcohol intake: current Substance use: never Living arrangements: with family Gender identity (if verbalized by the patient): Female Spiritual care concerns: No Exam Narrative: GENERAL: Well appearing, obese with BMI of 33.9, non-toxic, in no acute distress. HEAD: Normocephalic, atraumatic. NECK: Supple. No adenopathy, no masses. RESPIRATORY: Airway patent, respirations nonlabored. Clear to auscultation bilaterally, no rales, rhonchi, wheezing. CARDIOVASCULAR: Regular rate and rhythm without murmurs, rubs, or gallops. Peripheral pulses 2+ and equal bilat
[2023-06-10 21:33] VITALS: BP 134/90; PULSE 88; RESP 18; O2SAT 100
== END 2023-06-10 21:35 | disposition home or self-care (01) ==
PROVIDERS: Emergency Medicine; Emergency Provider Physician Assistant; PCP Physician Assistant
DX: R19.7 Diarrhea, unspecified (principal); E03.9 Hypothyroidism, unspecified; I10 Essential (primary) hypertension; Z87.891 Personal history of nicotine dependence
CPT/HCPCS: 36415; 80053; 81001; 81025; 83690; 85025; 99283

== ENCOUNTER 2023-06-11 10:59 | Outpatient (NON) | payer BC, SELFPAY ==
[2023-06-11 13:41] LABS: Toxigenic C. Diff POSITIVE (NEGATIVE)
== END 2023-06-11 11:00 | disposition home or self-care (01) ==
LOC: ANHLAB 11:00
PROVIDERS: PCP Physician Assistant; Visit Provider Physician Assistant
DX: R19.7 Diarrhea, unspecified (principal)
CPT/HCPCS: 87493

== ENCOUNTER 2025-02-26 16:39 | Outpatient (CLI) | payer OTHER, SELFPAY ==
--- OUTSIDE RECORDS SUMMARY | 2025-02-26 16:44 | XMS_ITS | Clinical Summary ---
Author Organization [facility] Address [address] [place] [address] Care Team Providers Care Life Support Technician Name Role Phone Barrington Pierce Primary Care Provider [phone] Source Comments [facility],non-owned Affiliates and Associated Physician Practices is amultiple site organization consisting of ambulatory clinics and hospital sitesin [place], [place], [place] and [place]. This disclosure is being madepursuant to the Care Everywhere program and may not contain all information available regarding this patient. Last updated 18.[facility] Allergies Active Allergy Reactions Criticality Noted Date Comments Latex 10/22/2016 Sulfa Drugs 10/22/2016 Medications * Be aware that medications may not be up to date on this document. Alwaysverify current medications with the patient. Medication Sig Dispensed Refills Start Date End Date Status hydroxychloroquine (PLAQUENIL) 200 MG tablet Take by mouth 2 times daily Active levothyroxine (SYNTHROID) 112 MCG tablet Take 112 mcg by mouth daily before breakfast Active LOSARTAN POTASSIUM PO Act abelardo nebivolol (BYSTOLIC) 5 MG tablet Take 5 mg by mouth once daily Active Social History Tobacco Use Types Packs/Day Years Used Date Smoking Tobacco: Never Sex and Gender Information Value Date Recorded Sex Assigned at Not on file Gender Identity Not on file Sexual Orientation Not on file Last Filed Vital Signs Vital Sign Reading Time Taken Comments Blood Pressure 118/76 10/22/2016 4:15 PM DEAL ARCHITECT Pulse 54 10/22/2016 4:15 PM DEAL ARCHITECT Temperature 37.1 C (98.7 F) 10/22/2016 4:15 PM DEAL ARCHITECT Respiratory Rate 16 10/22/2016 4:15 PM DEAL ARCHITECT Oxygen Saturation 96% 10/22/2016 4:15 PM DEAL ARCHITECT Inhaled Oxygen Concentration - - Weight 87.1 kg (192 lb) 10/22/2016 4:15 PM DEAL ARCHITECT Height 157.5 cm (5' 2 ) 10/22/2016 4:15 PM DEAL ARCHITECT Body Mass Index 35.12 10/22/2016 4:15 PM DEAL ARCHITECT Plan of Treatment Health Maintenance Due Date Last Done Comments LIPID TESTING 1980 MAMMOGRAM 1980 PAP SMEAR 1980 HIV SCREENING 1995 HEPATITIS C SCREENING 10/30/1998 DTAP/TDAP/TD VACCINES (1 - Tdap) 1999 HEPATITIS B VACCINE (1 of 3 - 19+ 3-dose series) 1999 COVID-19 VACCINE ( - 2023-2 5 season) 2024 INFLUENZA VACCINE (#1) 2024 DEPRESSION SCREENING 12/02/2024 ZOSTER VACCINE (1 of 2) 2030 HIB VACCINE Aged Out No longer eligi ble based on patient's age to complete this topic HPV VACCINE Aged Out No longer eligi ble based on patient's age to complete this topic MENINGOCOCCAL (Group B) VACC INE SHARED DECISION-MAKING Aged Out No longer eligibl e based on patient's age to complete this topic MENINGOCOCCAL GROUPS A/C/Y/W VACCINE Aged Out No longer eligible b ased on patient's age to complete this topic PNEUMOCOCCAL VACCINE Aged Out No long er eligible based on patient's age to complete this topic Care Teams Life Support Technician Relationship Specialty Start Date End Date Barrington Pierce PA [address] [place] [id number] PCP - General 01/11/23
--- OUTSIDE RECORDS SUMMARY | 2025-02-26 16:44 | XMS_ITS | Encounter Summary ---
Author Organization [facility] Address [address] [place] [address] Phone Care Team Providers Care Carpenter Prototype Name Role Phone Katie Whitehead MD Unavailable [phone] Barrington Pierce Primary Care Provider [phone] Horace Landers DPT Unavailable [phone] No, Physician Primary Care Provider [phone] Encounter Details Date Type Department Care Team (Late st Contact Info) Description 04/08/2023 Orders Only [facility] Scanning, Provider Social History Tobacco Use Types Packs/Day Years Used Date Smoking Tobacco: Former Smokeless Tobacco: Never Alcohol Use Standard Drinks/Week Comments Yes 0 (1 standard drink = 0.6 oz pur e alcohol) occ AUDIT-C Answer Date Recorded Q1: How often do you have a drink containing alc ohol? 2-3 times a week 06/19/2022 Q2: How many drinks containi ng alcohol do you have on a typical day when you are drinking? 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 Gender Identity Female 05/05/2019 3:52 PM CDT Sexual Orientation Straight 05/05/2019 3: 52 PM CDT documented as of this encounter Plan of Treatment Not on file documented as of this encounter Procedures Procedure Name Priority Date/Time Associated Diagnosis Comments SCAN - LABS 04/08/2023 documented in this encounter Results * SCAN - LABS (04/08/2023) us Provider Scanning Final Result documented in this encounter Visit Diagnoses Not on filedocumented in this encounter Care Teams Carpenter Prototype Relationship Specialty Start Date End Date Barrington Pierce PA [address] [place] [address] PCP - General Physician Manager Business Banking 10/15/19 08/27/24 No, Physician PCP - General 11/02/24 Katie Whitehead MD [address] [place] [address] Rheumatology 06/06/17 Horace Landers DPT [address] [place] [address] Physical Therapist Physical Therapy 05/16/20 documented as of this encounter
--- OUTSIDE RECORDS SUMMARY | 2025-02-26 16:44 | XMS_ITS | CONTINUITY OF CARE DOCUMENT ---
Author Name nichelle steward Address Unknown Organization [facility] Address [id number] [place] [address] [address] [place] [address] Phone [phone] Care Team Providers Care Underliner Name Role Phone Efren VITALE, Laurence Unavailable [phone] RAINA COOMBS MD Unavailable VITAL SIGNS Date Observation Value Provider blood pressure, diastolic 106 mm[Hg] Florez blood pressure, systolic 130 mm[Hg] Mathew Perdomo SOCIAL HISTORY Date Observation Value Provider smoking status never [place] FUNCTIONAL STATUS Date Observation Value Provider periodic limb movement index absent (0) Jun Joshi MD INSURANCE PROVIDERS Payer name Policy type / Coverage type Kamini red green party ID [facility] 50 Cub[employer] insurance [place] [id number]
--- OUTSIDE RECORDS SUMMARY | 2025-02-26 16:44 | XMS_ITS | Referral Summary ---
Author Organization [facility] Address [address] [place] [address] Phone Care Team Providers Care Detailer [employer] Name Role Phone Katie Whitehead MD Unavailable [phone] Horace Landers DPT Unavailable [phone] No, Physician Primary Care Provider [phone] Allergies Active Allergy Reactions Criticality Noted Date Comments Latex Itching,Rash Medium Sulfa (Sulfonamide Antibiotics) Rash Medium Medications levothyroxine (SYNTHROID, LEVOTHROID) 137 mcg tablet Take 1 tablet (137 mcg total) by mouth daily. 90 tablet 3 8 Active omeprazole (PriLOSEC) 20 mg capsule Take 1 capsule (20 mg total) by mouth daily Active norgestimate-et hinyl estradiol (ESTARYLLA ORAL) Take by mouth daily Active Nurtec ODT tablet,disinteg rating as needed 2 Active buPROPion XL (WELLBUTRIN XL) 150 mg 24 hr tablet Take 150 mg by mouth daily 2 Active EluRyng 0.12-0.015 mg/24 hr vaginal ring INSERT 1 RING VAGINALLY FOR 3 WEEKS THEN REMOVE FOR 1 WEEK 2 Active escitalopram (LEXAPRO) 10 mg tablet Take 1 tablet (10 mg total) by mouth daily 3 Active lisinopriL (PRINIVIL,ZESTR IL) 40 mg tablet Take 1 tablet (40 mg total) by mouth daily 3 Active hydroxychloroqu ine (PLAQUENIL) 200 mg tablet Take 1 tablet (200 mg total) by mouth daily 90 tablet 1 5 Active belimumab (Benlysta) auto-injector Inject 1 mL (200 mg total) under the skin once a week 12 mL 5 Active Active Problems Problem Noted Date Diagnosed Date Primary osteoarthritis of both knees 01/27/2020 Migraine with aura 06/15/2014 Overview (03/07/2017): MIGRNE UNSP WO NTRC MGRN Hypothyroidism 04/17/2014 Overview (03/07/2017): HYPOTHYROIDISM NOS Restless legs syndrome 04/17/2014 Overview (03/08/2017): RESTLESS LEGS SYNDROME Systemic lupus erythematosus 04/17/2014 Overview (03/08/2017): SYST LUPUS ERYTHEMATOSUS Family history of diabetes mellitus 04/17/2014 Overview (03/09/2017): FAM HX-DIABETES MELLITUS Hypertension 04/17/2014 Overview (03/09/2017): HYPERTENSION NOS Raynaud's phenomenon 04/17/2014 Overview (03/09/2017): RAYNAUD'S SYNDROME Bipolar I disorder 09/04/2012 Overview (03/08/2017): Bipolar 1 disorder Immunizations Immunization Administration Dates Next Due Influenza, Quadrivalent, Split, Intramuscular Tdap 02/24/2007 Social History Tobacco Use Types Packs/Day Years Used Date Smoking Tobacco: Former Smokeless Tobacco: Never Tobacco Cessation:Counseling Given: Not Answered Alcohol Use Standard Drinks/Week Comments Yes 0 (1 standard drink = 0.6 oz pur e alcohol) occ AUDIT-C Answer Date Recorded Q1: How often do you have a drink containing alc ohol? 2-3 times a week 11/02/2024 Average Number of Drinks Not on file 12/02/2 024 Frequency of Binge Drinking Not on file 01/2024 Comments Unknown Sex and Gender Information Value Date Recorded Sex Assigned at Not on file Legal Sex Female 5:21 AM SOFTBALL WINDER Gender Identity Female 05/05/2019 3:52 PM CDT Sexual Orientation Straight 05/05/2019 3: 52 PM CDT Last Filed Vital Signs Vital Sign Reading Time Taken Comments Blood Pressure 154/98 11/02/2024 1:09 PM SOFTBALL WINDER Pulse 96 11/02/2024 1:09 PM SOFTBALL WINDER Temperature 36.5 C (97.7 F) 11/02/2024 1:09 PM SOFTBALL WINDER Respiratory Rate 16 06/26/2022 1:50 PM CDT Oxygen Saturation 98% 11/02/2024 1:09 PM SOFTBALL WINDER Inhaled Oxygen Concentration - - Weight 100 kg (220 lb 6.4 oz) 11/02/2024 1:09 PM SOFTBALL WINDER Height 167.6 cm (5' 6 ) 11/02/2024 1:09 PM SOFTBALL WINDER Body Mass Index 35.57 11/02/2024 1:09 PM SOFTBALL WINDER Plan of Treatment Not on file Insurance [facility] [place] [address] [facility] CHOICE PLUS ANTHEM ACCESS ANTH TRADITIONAL Member Subscriber Plan / Payer (Ef fective 2020-Present) Name:Pushpa Chavez Relation to Subscriber:Self Name:Pushpa Chavez Payer ID:[id number] (NAIC) Type:[employer] Address: [id number] ACCESS OOS [facility] NEXUS Yones OOS Member Subscriber Plan / Payer (Ef fective 2020-Present) Name:Pushpa Chavez Relation to Subscriber:Self Name:PUSHPA CHAVEZ Payer ID:[id number] (NAIC) Type:[employer] [facility] Address: [address] [place] [id number] [facility] CHOICE PLUS Care Teams Det[employer] Relationship Specialty Start Date End Date No, Physician PCP - General 11/02/24 Katie Whitehead MD [address] [place] [address] Rheumatology 06/06/17 Horace Landers DPT [address] [place] [address] [address] [place] [address] Physical Therapist Physical Therapy 05/16/20
--- OUTSIDE RECORDS SUMMARY | 2025-02-26 16:44 | XMS_ITS | Clinical Summary ---
Author Organization [facility] Address [address] [place] [address] Phone Care Team Providers Care Lpn Private Duty Name Role Phone Katie Whitehead MD Unavailable [phone] Horace Landers DPT Unavailable [phone] No, Physician Primary Care Provider [phone] Allergies Active Allergy Reactions Criticality Noted Date [...] Due Influenza, Quadrivalent, Split, Intramuscular Tdap 02/24/2007 Surgical History Surgery Date Site/Laterality Comments OTHER SURGICAL HISTORY Full body rash: forsman derm, biopsy perivascular dermatitis OTHER SURGICAL HISTORY Sjogren's syndrome: anticardiolipin antibody positive Medical History Medical History Date Comments Hx Other Medical 2006 childbirth Hx Other Medical 2007 Full body rash; Outcome: resolved, possible sjogrens Disorder of thyroid Thyroid dise ase Hx Other Medical Headache, migra ine Hx Other Medical 2006 Sjogren's syndr ome Family History Medical History Relation Name Comments Other Father hypothyroid; Coronary artery disease Maternal Grandfather Coronary artery disease; Hypertension Maternal Grandfather Hyperte nsion; Diabetes Maternal Grandmother Diabete s mellitus; Bipolar disorder Mother Bipolar dis order; Other Mother Alive and well; Other Other No family histo ry of connective tissue disease; Diabetes Paternal Grandmother Diabete s mellitus; Relation Name Status Comments Father Maternal Grandfather Alive Maternal Grandmother Alive Mother Alive Other Paternal Grandmother Alive Social History Tobacco Use Types Packs/Day Years [...] Average Number of Drinks Not on file 024 Frequency of Binge Drinking Not on file 01/2024 Comments Unknown Sex and Gender Information Value Date Recorded Sex Assigned at Not on file Legal Sex Female 5:21 AM LINUX SYSTEM ENGINEER Gender Identity Female 05/05/2019 3:52 PM CDT Sexual Orientation Straight 05/05/2019 3: 52 PM CDT Obstetrics History Last Filed Vital Signs Vital Sign Reading Time Taken Comments Blood Pressure 154/98 11/02/2024 1:09 PM LINUX SYSTEM ENGINEER Pulse 96 11/02/2024 1:09 PM LINUX SYSTEM ENGINEER Temperature 36.5 C (97.7 F) 11/02/2024 1:09 PM LINUX SYSTEM ENGINEER Respiratory Rate 16 06/26/2022 1:50 PM CDT Oxygen Saturation 98% 11/02/2024 1:09 PM LINUX SYSTEM ENGINEER Inhaled Oxygen Concentration - - Weight 100 kg (220 lb 6.4 oz) 11/02/2024 1:09 PM LINUX SYSTEM ENGINEER Height 167.6 cm (5' 6 ) 11/02/2024 1:09 PM LINUX SYSTEM ENGINEER Body Mass Index 35.57 11/02/2024 1:09 PM LINUX SYSTEM ENGINEER Plan of Treatment Health Maintenance Due Date Last Done Comments Cervical Cancer Screening 1980 Depression Screening 1980 Hepatitis C Screening 1980 Varicella Vaccines (1 of 2 - 13+ 2-dose series) 1993 Hepatitis B Screening 1998 Regular Well Visit/Exam 18-64 1998 Pneumococcal vaccine <65 (1 of 2 - PCV) 1999 Zoster Vaccine (1 of 2) 1999 Covid-19 Vaccine (3 - Modern a risk series) 02/23/2021 01/26/2021, 12/20/2020 Influenza Vaccine (#1) 2024 10/07/2018 Breast Cancer Screening-Mammogram 02/09/2025 02/10/2024, 02/10/2024 DTaP/Tdap/Td Vaccine (3 - Td or Tdap) 06/21/2030 06/21/2020, 02/24/2007 HPV Vaccines Aged Out No longer eligi ble based on patient's age to complete this topic Insurance [facility] CHOICE PLUS [facility] HMO/PPO Address: [address] [place] [address] CHOICE PLUS [facility] HMO/PPO Address: [address] [address] [place] [address] [employer] ACCESS ANTH TRADITIONAL BLUE ACCESS OOS [facility] NEXUS [facility] HMO/PPO Address: [address] [place] [address] [employer] ACCESS OOS [facility] CHOICE PLUS [facility] HMO/PPO Address: [address] [address] [place] [address] Care Teams Lpn Private Duty Relationship Specialty Start Date End Date No, Physician PCP - General 11/02/24 Katie Whitehead MD [address] [place] [address] Rheumatology 06/06/17 Horace Landers DPT [address] [place] [address] Physical Therapist Physical Therapy 05/16/20
--- OUTSIDE RECORDS SUMMARY | 2025-02-26 16:44 | XMS_ITS | Encounter Summary ---
Author Organization [facility] Address [address] [place] [address] Phone Care Team Providers Care Jamb Cutter Name Role Phone Katie Whitehead MD Unavailable [phone] Cassidy Redmond MD Primary Care Provider [phone] Barrington Pierce Primary Care Provider [phone] Horace Landers DPT Unavailable [phone], Physician Primary Care Provider [phone] Encounter Details Date Type Department Care Team (Late st Contact Info) Description 10/12/2019 Orders Only [facility] Scanning, Provider Social History Tobacco Use Types Packs/Day Years Used Date Smoking Tobacco: Never Smokeless Tobacco: Never Alcohol Use Standard Drinks/Week Comments Yes 0 (1 standard drink = 0.6 oz pur e alcohol) occ Comments Unknown Sex and Gender Information Value Date Recorded Sex Assigned at Not on file Legal Sex Female 5: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 Gender Identity Female 05/05/2019 3:52 PM CDT Sexual Orientation Straight 05/05/2019 3: 52 PM CDT documented as of this encounter Plan of Treatment Not on file documented as of this encounter Procedures Procedure Name Priority Date/Time Associated Diagnosis Comments SCAN - LABS 10/12/2019 documented in this encounter Results * SCAN - LABS (10/12/2019) us Provider Scanning Final Result documented in this encounter Visit Diagnoses Not on filedocumented in this encounter Care Teams Jamb Cutter Relationship Specialty Start Date End Date Cassidy Redmond MD [address] [place] [address] [place] [id number] PCP - General 03/07/18 10/14/19 Barrington Pierce PA [address] [place] [address] [place] [address] PCP - General Physician Housekeeper Supervisor 10/15/19 08/27/24 No, Physician PCP - General 11/02/24 Katie Whitehead MD [address] [facility] [place] [address] Rheumatology 06/06/17 Horace Landers DPT [address] [place] [address] [place] [address] Physical Therapist Physical Therapy 05/16/20 documented as of this encounter
--- OUTSIDE RECORDS SUMMARY | 2025-02-26 16:44 | XMS_ITS | Clinical Summary ---
Author Organization [facility] Address [address] [place] [address] Care Team Providers Care Family Consumer Scientist Name Role Phone Babatunde Pierce Primary Care Provider Unavail able Family History Medical History Relation Comments Lymphoma Maternal Grandmother Relation Status Comments Maternal Grandmother Social History Tobacco Use Types Packs/Day Years Used Date Smoking Tobacco: Never Assessed Comments No Sex and Gender Information Value Date Recorded Sex Assigned at Not on file Legal Sex Female 8:27 PM CDT Gender Identity Not on file Sexual Orientation Not on file Plan of Treatment Health Maintenance Due Date Last Done Comments Cervical Cancer Screening Pap Smear (Age 30 to 64) Every 3 Years 1980 Annual Physical 1983 Hepatitis C 1998 Hepatitis B Vaccines (1 of 3 - 19+ 3-dose series) 1999 Cervical Cancer Screening Pap with HPV Testing (Age 30 to 64) Every 5 Years 2010 Cervical Cancer Screening with HPV 2010 COVID-19 Vaccine ( season) 2024 10/19/2022, 11/28/2021, 01/26/2021, Additional history exists Mammogram Screening 02/09/2026 02/10/2024 DTaP, Tdap and Td Vaccines (3 - Td or Tdap) 06/21/2030 06/21/2020, 02/24/2007 HPV Vaccines Aged Out No longer eligi ble based on patient's age to complete this topic Meningococcal B Vaccine Aged Out No l onger eligible based on patient's age to complete this topic Meningococcal Vaccine Aged Out No musa lui eligible based on patient's age to complete this topic Pneumococcal Vaccine: Pediatrics (0 to 5 Years) and At-Risk Patients (6 to 64 Years) Aged Out No longer eligible based on patient's age to complete this topic RSV Immunizations Under 20 Months Aged Out No longer eligible based on patient's age to complete this topic Procedures Procedure Name Priority Date/Time Associated Diagnosis Comments MG SCREENING W OJSE KEANU DIGI Routine 02/10/2024 8:04 AM CDT Encounter for screening mammogram for malignant neoplasm of breast from Last 3 Months or Most Recently Relevant to Health Maintenance Results * MG SCREENING W JOSE KEANU DIGI (02/10/2024 8:04 AM CDT) Anatomical Region Laterality Modality Breast Bilateral Mammography 02/10/2024 8:40 AM CDT Narrative 02/10/2024 8:41 AM CDT Examination: Screening bilateral mammogram Exam Date/Time: 02/10/2024 7:44 AM Clinical history: No current complaints. Comparison: None. Baseline examination. Technique: Digital screening mammography of both breasts was performed. Breast tomosynthesis acquisitions were obtained and reviewed. This study was read with the assistance of a computer-aided detection system. Tissue density: There are scattered areas of fibroglandular density. Findings: No suspicious masses, malignant appearing calcifications, skin thickening or other abnormalities are present. IMPRESSION: No suspicious mammographic findings. Recommendation: 1. Routine Screening, Bilateral Assessment: ACR BI-RADS 2 - BENIGN FINDING(S) Ordered By: BABATUNDE PIERCE Interpreted By: Eduard Lucai, 02/10/2024 8:40 AM us Babatunde Pierce PA MAMMO Final Result from Last 3 Months or Most Recently Relevant to Health Maintenance Insurance [facility] Care Teams Family Consumer Scientist Relationship Specialty Start Date End Date Babatunde Pierce PA PCP - General PHYSICIAN CERTIFIED MEDICAL BILLER 11/23/19
--- OUTSIDE RECORDS SUMMARY | 2025-02-26 16:44 | XMS_ITS | Encounter Summary ---
Author Organization [facility] Address [address] [place] [address] Phone Care Team Providers Care Pharmacist Manager Name Role Phone Ktaie Whitehead MD Unavailable [phone] Barrington Pierce Primary Care Provider [phone] Horace Landers DPT Unavailable [phone] No, Physician Primary Care Provider [phone] Encounter Details Date Type Department Care Team (Late st Contact Info) Description 11/13/2019 Orders Only [facility] Scanning, Provider Social History Tobacco Use Types Packs/Day Years Used Date Smoking Tobacco: Never Smokeless Tobacco: Never Alcohol Use Standard Drinks/Week Comments Yes 0 (1 standard drink = 0.6 oz pur e alcohol) occ Comments Unknown Sex and Gender Information Value Date Recorded Sex Assigned at Not on file Legal Sex Female 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 Gender Identity Female 05/05/2019 3:52 PM CDT Sexual Orientation Straight 05/05/2019 3: 52 PM CDT documented as of this encounter Plan of Treatment Not on file documented as of this encounter Procedures Procedure Name Priority Date/Time Associated Diagnosis Comments SCAN - LABS 11/13/2019 documented in this encounter Results * SCAN - LABS (11/13/2019) us Provider Scanning Final Result documented in this encounter Visit Diagnoses Not on filedocumented in this encounter Care Teams Pharmacist Manager Relationship Specialty Start Date End Date Barrington Pierce PA [address] [place] [address] PCP - General Physician Lead Blender 10/15/19 08/27/24 No, Physician PCP - General 11/02/24 Katie Whitehead MD [address] [facility] [address] [address] [facility] [place] [address] Rheumatology 06/06/17 Horace Landers DPT [address] [facility] [address] [place] [address] Physical Therapist Physical Therapy 05/16/20 documented as of this encounter
--- OUTSIDE RECORDS SUMMARY | 2025-02-26 16:44 | XMS_ITS | Data Portability ---
Author Organization [facility] RAFIAMainor Address [address] [place] [address] Care Team Providers Care Wire Bound Box Machine Helper Name Role Phone BABATUNDE PIERCE Primary Care Provider Assessment No assessment recorded. Plan of Treatment Reminders Order Date Submit Date Provider Last Modified By Organization Details Last Modified Time Details Appointments None record ed. Lab cultur e, wound 2022 023 [facility], [address] [place] [address], [address], [place], [address], 3 14:12:47 Referral None record ed. Procedures None record ed. Surgeries None record ed. Imaging MAMMO, screen ing, digita l, bilate ral 2022 023 [facility] Scheduling, [facility], [place], [address], 4 11:49:17 Medication Orders lisino pril 40 mg tablet 2023 024 [facility], [facility] [place] [place], [address], 4 12:20:25 levoth yroxin e 137 mcg tablet 2023 024 [facility], [address] [place], [address], 4 12:20:24 Lexapr o 10 mg tablet 2023 024 [email or web address] [facility], [address] [place] [address], [address], 4 12:54:55 cephal exin 500 mg capsul e 2022 023 [facility] #86643, [address] [place], [place], [id number], 4 10:05:53 lisino pril 40 mg tablet 2022 023 [email or web address] [facility], [address] [place] [address], [address], 3 10:25:42 Silvad binu 1 % topica l cream 2022 023 [facility] #43996, [address] [place], [place], [id number], 3 15:08:29 Keflex 750 mg capsul e 2022 023 [facility] #15043, [address] [place], [place], [id number], 3 09:48:10 Difluc an 150 mg tablet 2022 023 [facility] #22392, [address] [place], [place], [id number], 3 09:47:33 Patient TargetsNo targets recorded. Patient Instructions Encounter Date Encounter Id Patient Instructions Last Modified By Organization Details Last Modified Time 05/23/2023 [id number] A healthy lifestyle: care instructions [email or web address] Not available 05/23/2023 14:50:52 06/05/2023 [id number] A healthy lifestyle: care instructions [email or web address] Not available 06/12/2023 11:28:07 11/22/2023 [id number] A healthy lifestyle: care instructions [email or web address] Not available 11/23/2023 10:29:26 05/22/2024 [id number] A healthy lifestyle: care instructions [email or web address] Not available 05/22/2024 12:20:22 learning about stress [email or web address] Not available 05/22/2024 13:02:47 coping with stress education [email or web address] Not available 05/22/2024 13:02:47 learning about high blood pressure [email or web address] Not available 05/22/2024 13:02:47 high blood pressure: care instructions [email or web address] Not available 05/22/2024 13:02:47 Reason for Referral None Reported. Results Created Date Observation Date Name Description Value Unit Range Abnormal Flag Note LastModifiedBy Organization Detail LastModifiedTime 05/23/20 23 05/28/2023 ANAER OBIC AND AEROB IC CULTU RE aerobic culture Final report Not Available [facility] ([facility]) [address] [place], [address], 05/30/2023 14:12:47 05/23/20 23 05/28/2023 ANAER OBIC AND AEROB IC CULTU RE result 1 Commen t No growt h in 36 - 48 hours . Not Available [facility] ([facility]) [address] [place], [address], 05/30/2023 14:12:47 05/23/20 23 05/30/2023 ANAER OBIC AND AEROB IC CULTU RE anaerobic culture Final report Not Available [facility] ([facility]) [address] [place], [address], 05/30/2023 14:12:47 05/23/20 23 05/30/2023 ANAER OBIC AND AEROB IC CULTU RE result 1 Commen t No anaer obes recov ered. Not Available [facility] ([facility]) [address] [place], [address], 05/30/2023 14:12:47 05/14/20 23 05/13/2023 imagi ng/di agnos tic resul t No observ ation record ed. [facility] [address], [place], [address], 05/16/2023 17:45:13 02/10/20 24 MAMMO , scree jaylen, tomos ynthe sis, bilat eral [facility] [address] [place] [address] This is a summar y report . The comple te report is availa ble in the patien t's medica l record . If you cannot access the medica l record , please contac t the sendin g organi karissa for a detail ed fax or copy. Examin ation: Screen ing bilate ral mammog karen Access ion: [id number] Exam Date/T new: 7:44 AM Clinic al histor y: No curren t compla ints. Compar natasha: None. Baseli ne examin ation. Techni que: Digita l screen ing mammog francesco of both breast s was perfor med. Breast tomosy nthesi s acquis itions were obtain ed and review ed. This study was read with the assist ance of a [employer] er-aid ed detect ion system . Tissue densit y: There are scatte red areas of fibrog landul ar densit y. Findin gs: No suspic ious masses , malign ant appear ing calcif icatio ns, skin thicke jaylen or other abnorm alitie s are presen t. IMPRES NAVI: No suspic ious mammog raphic findin gs. Recomm endati on: 1. Routin e Screen ing, Bilate ral Assess ment: ACR BI-RAD S 2 - BENIGN FINDIN G(S) Ordere d By: BABATUNDE PIERCE Electr onical ly Signed By: Eduard Lucia on 8:41 AM Interp reted By: Eduard Lucia, 8:40 AM RCC/PO ST 2 D LMLO/M USCLE spacharn [facility] [address], [place], [address], 02/10/2024 11:49:25 Result Notes None recorded. Problems Name Problem SNOMED Code Status Onset Date Resolution Date Notes Provider Name and Address Organization Details Recorded Time Essential hypertension 86177543 Active 2017 Not Available [facility] 3 02:33:58 Systemic lupus erythematosus 22529812 Active 2017 Not Available [facility] 3 02:33:58 Hypothyroidism 06937832 Active 2017 Not Available [facility] 3 02:33:58 Problem Notes None recorded. Procedures Surgical History None recorded. Imaging Results Imaging Date Name Status LastModified by Organiz ation Details LastModified Time 05/13/2023 imaging/diagno stic result completed [facility] [address], [place], [address], 05/16/2023 17:45:13 02/10/2024 MAMMO, screening, tomosynthesis, bilateral completed stevan [facility] [address], [place], [address], 02/10/2024 11:49:25 Procedure Notes None recorded. Medical Equipment None Reported. Allergies Allergen ID Allergen Name Allergen Category Reaction Reaction Severity Criticality Documentation Date Start Date Code Code System Note Provider Name and Address Organization Details Recorded Time 375571 Substance with sulfonami de structure and antibacte rial mechanism of action (substanc e) medicatio n rash Not available Not available 09/12/2018 51028 8003 SNOMED Not Available Not Available Not Available 541198 latex environme nt,medica tion itching Not available Not available 09/12/2018 39469 91 RxNorm Not Available Not Available Not Available Medications Name Sig Start Date Stop Date Status Note LastModified by Organization Details LastModified Time id now influenza a & b 2 test kit TEST DIRECTED TODAY 04/03 completed Not Available Not Available Not Available clindamyc in HCl 300 mg capsule TAKE 1 CAPSULE BY MOUTH EVERY 8 HOURS 06/11 completed Not Available Not Available Not Available fluconazo le 150 mg tablet TAKE 1 TABLET BY MOUTH EVERY DAY FOR 1 DAY 06/12 completed Not Available Not Available Not Available benzonata te 200 mg capsule Take 1 capsule 3 times a day by oral route as needed. 11/20 completed Not Available Not Available Not Available hydrocodo ne 5 mg-acetam inophen 325 mg tablet TAKE 1 TABLET BY MOUTH EVERY 4 HOURS NEEDED 04/03 completed Not Available Not Available Not Available lisinopri l 20 mg tablet TAKE 1 TABLET BY MOUTH EVERY DAY 04/03 completed Not Available Not Available Not Available prednison e 20 mg tablet 06/20 completed Not Available Not Available Not Available Tubersol 5 tub. unit/0.1 mL intraderm al injection solution Administ er .1ml interder lion 11/11 completed kcraig naval designer Not Available Not Available Not Available prednison e 5 mg tablet Take 1 tablet by oral route for 9 days. 10/12 completed Not Available Not Available Not Available penicilli n V potassium 500 mg tablet 06/21 completed Not Available Not Available Not Available triamcino lone acetonide 0.1 % topical cream APPLY TOPICALL Y TO THE AFFECTED AREA EVERY 8 HOURS FOR 7 DAYS 04/03 completed Not Available Not Available Not Available cephalexi n 500 mg capsule TAKE 1 CAPSULE BY MOUTH THREE TIMES DAILY FOR 10 DAYS 05/04 completed Not Available Not Available Not Available levothyro xine 125 mcg tablet Take 1 tablet every day by oral route. 11/13 completed Not Available Not Available Not Available lisinopri l 10 mg tablet Take 1 tablet every day by oral route. 10/12 completed Not Available Not Available Not Available lisinopri l 30 mg tablet TAKE 1 TABLET BY MOUTH EVERY DAY active Not Available Not Available No t Available omeprazol e 20 mg capsule,d elayed release Take 1 capsule every day by oral route. active Not Available Not Available No t Available mupirocin 2 % topical ointment APPLY TOPICALL Y TO BACK OF HEAD TWICE DAILY 03/15 completed Not Available Not Available Not Available hydroxych loroquine 200 mg tablet TK 1 T PO QD active Not Available Not Available No t Available oxycodone -acetamin ophen 7.5 mg-325 mg tablet 06/21 completed Not Available Not Available Not Available methylpre dnisolone 4 mg tablets in a dose pack 06/21 completed Not Available Not Available Not Available SSD 1 % topical cream APPLY A 1/16 INCH (1.5 MM) THICK LAYER TO ENTIRE BURN AREA BY TOPICALR OUTE 2 TIMES PER DAY active Not Available Not Available No t Available lisinopri l 40 mg tablet Take 1 tablet every day by oral route. active Not Available Not Available No t Available naproxen 500 mg tablet 10/12 completed Not Available Not Available Not Available amoxicill in 875 mg-potass ium clavulana te 125 mg tablet TAKE 1 TABLET BY MOUTH TWICE DAILY FOR 10 DAYS 03/15 completed Not Available Not Available Not Available NuvaRing 0.12 mg-0.015 mg/24 hr vaginal INSERT 1 RING VAGINALL Y FOR 3 WEEKS THEN REMOVE FOR 1 WEEK active Not Available Not Available No t Available escitalop karen 10 mg tablet Take 1 tablet every day by oral route. active Not Available Not Available No t Available Synthroid 137 mcg tablet Take 1 tablet every day by oral route for 90 days. active Not Available Not Available No t Available bupropion HCl XL 150 mg 24 hr tablet, extended release TAKE 1 TABLET BY MOUTH DAILY 04/03 completed Not Available Not Available Not Available nitrofura ntoin monohydra te/macroc rystals 100 mg capsule TAKE 1 CAPSULE BY MOUTH TWICE DAILY FOR 5 DAYS 09/25 completed Not Available Not Available Not Available chlorhexi dine gluconate 0.12 % mouthwash 06/21 completed Not Available Not Available Not Available NuvaRing 04/03 completed managed by server support technician Not Available Not Available Not Available Keflex 750 mg capsule Take 1 capsule twice a day by oral route for 7 days. 06/12 completed Not Available Not Available Not Available PreviDent 5000 Sensitive 1.1 %-5 % dental paste BRUSH TEETH AND GUMS 1 TO 2 TIMES DAILY. NO EATING OR DRINKING 30 MINUTES AFTER USE. active Not Available Not Available No t Available Bystolic 5 mg tablet Take 1 tablet every day by oral route. 09/12 completed Not Available Not Available Not Available omeprazol e 20 mg tablet,de layed release Take 1 tablet every day by oral route. 06/20 completed Not Available Not Available Not Available Voltaren 1 % topical gel APPLY 2 GRAMS TO THE AFFECTED AREA(S) BY TOPICAL ROUTE 4 TIMES PER DAY 06/20 completed Not Available Not Available Not Available Lo Loestrin Fe 1 mg-10 mcg (24)/10 mcg (2) tablet 06/20 completed Not Available Not Available Not Available Benlysta 120 mg intraveno us solution Inject by intraven ous route. 03/15 completed Not Available Not Available Not Available Dificid 200 mg tablet TAKE 1 TABLET BY MOUTH TWICE DAILY FOR 10 DAYS active Not Available Not Available No t Available Estarylla 0.25 mg-0.035 mg tablet TAKE 1 TABLET BY MOUTH EVERY DAY 09/25 completed Not Available Not Available Not Available Benlysta 200 mg/mL subcutane ous auto-inje ctor Inject 200 mg every week by sub-q route. active Not Available Not Available No t Available Nurtec ODT 75 mg disintegr ating tablet active Not Available Not Available Not Available ID NOW COVID-19 Test Kit TEST DIRECTED TODAY 04/03 completed Not Available Not Available Not Available [facility] COVID-19 Antigen Rapid Home Test kit 05/01 completed Not Available Not Available Not Available Paxlovid 300 mg (150 mg x 2)-100 mg tablets in a dose pack TK 2 NIRMATRE LVIR TS AND 1 RITONAVI R T TOGETHER PO BID FOR 5 DAYS TWICE DAILY FOR 5 DAYS 09/25 completed Not Available Not Available Not Available Vitals Date Recorded Body height Body mass index (BMI) Body weight Body temperature Heart rate Systolic blood pressure Diastolic blood pressure Provider Name and Address Organization Details Last Updated DateTime 3 167.01 cm 34.6 kg/m2 33071.1 7 g 96.9 [degF] 90 /min 152 mm[Hg] 108 mm[Hg] Kaylin Recinos [place] [facility] 3 15:01:41 Date Recorded Body height Body mass index (BMI) Body weight Body temperature Heart rate Oxygen saturation Oxygen saturation in Arterial blood by Pulse oximetry Provider Name and Address Organization Details Last Updated DateTime 3 167.01 cm 34.5 kg/m2 22692.5 8 g 97.2 [degF] 87 /min 98 % 98 % Maria Eugenia Stokes [place] - [facility] 3 14:16:03 Date Recorded Systolic blood pressure Diastolic blood pressure Provider Name and Address Organization Details Last Updated DateTime 05/23/2023 135 mm[Hg] 87 mm[Hg] Babatunde Pierce PA-C Attn: Accounting[address] [place], [address], [facility] 05/23/2023 14:47:25 Date Recorded Body height Body mass index (BMI) Body weight Body temperature Heart rate Pain severity - 0-10 verbal numeric rating [Score] - Reported Oxygen saturation Oxygen saturation in Arterial blood by Pulse oximetry Systolic blood pressure Diastolic blood pressure Provider Name and Address Organization Details Last Updated DateTime 3 167.01 cm 33.7 kg/m2 28219.0 2 g 97.2 [degF] 108 /min 0 99 % 99 % 113 mm[Hg] 82 mm[Hg] Verito Blackburner [facility] 3 16:42:46 Date Recorded Body height Body temperature Body mass index (BMI) Body weight Heart rate Oxygen saturation Oxygen saturation in Arterial blood by Pulse oximetry Provider Name and Address Organization Details Last Updated DateTime 3 167.01 cm 97.7 [degF] 34.6 kg/m2 46426.1 7 g 85 /min 99 % 99 % Kaylin Recinos MA [facility] 3 17:01:33 Date Recorded Systolic blood pressure Diastolic blood pressure Provider Name and Address Organization Details Last Updated DateTime 11/22/2023 125 mm[Hg] 81 mm[Hg] Babatunde Pierce PA-C Attn: Accounting[address] [place], [address], [facility] 11/23/2023 10:29:10 Date Recorded Body height Body mass index (BMI) Body weight Body temperature Heart rate Oxygen saturation Oxygen saturation in Arterial blood by Pulse oximetry Systolic blood pressure Diastolic blood pressure Provider Name and Address Organization Details Last Updated DateTime 4 167.01 cm 36.1 kg/m2 205836. 51 g 98 [degF] 71 /min 98 % 98 % 163 mm[Hg] 116 mm[Hg] Kaylin Recinos MA [facility] 4 11:38:29 Social History Question Answer Notes LastModified by Organizat ion Details LastModified Time Tobacco Smoking Status Former Smoker Kaylin Recinos MA [facility], [place] - [facility] 09/12/2018 10:08:07 Do You Or Have You Ever Used E-cigarettes Or Vape? Never Used Electronic Cigarettes Information not available 10/12/2019 What Was The Date Of Your Most Recent Tobacco Screening? 05/22/2024 [email or web address] Information not available 05/22/2024 Do You Or Have You Ever Used Smokeless Tobacco? Never Used Smokeless Tobacco Information not available 10/12/2019 Do You Use Any Illicit Or Recreational Drugs? No Information not available 03/15/2022 Has Tobacco Cessation Counseling Been Provided? No Information not available 03/15/2022 Do You Or Have You Ever Used Any Other Forms Of Tobacco Or Nicotine? No [email or web address] Information not available 02/09/2021 Sex: Unknown Functional Status None recorded. Mental Status None recorded. Family History Relationship Description Onset Age of this Age Resolved Age Notes LastModified by Organization Details LastModified Time Father Coronary arterioscler [email or web address] [email or web address] Not available 2017 10:42:38 Father Hypothyroidi sm [email or web address] Not available 2017 10:42:56 Father Coronary atherosclero sis [email or web address] Not available 2019 14:28:38 Mother Hypertensive disorder Not available 2017 10:42:47 Mother Heart disease [email or web address] Not available 2019 14:28:17 Maternal Grandmother Leukemia [email or web address] Not available 11/2018 10:43:17 Medical History No medical history recorded. Gynecological HistoryNo gynecological history recorded. Obstetrics History GPAL:G 0 P 0 0 0 0 Immunizations Vaccine Type Date Status Note Provider Nam e and Address Organization Details Recorded Time COVID-19, mRNA, LNP-S, PF, 100 mcg/0.5mL dose or 50 mcg/0.25mL dose 1 completed Not Available [facility] 08/14/2023 02:33:58 COVID-19, mRNA, LNP-S, PF, 100 mcg/0.5mL dose or 50 mcg/0.25mL dose 1 completed Not Available [facility] 08/14/2023 02:33:58 Influenza, split virus, quadrivalent, preservative 8 completed Not Available [facility] 12/19/2019 02:36:27 Tdap 0 completed Babatunde Pierce PA-C Attn: Accounting,[address] [facility], [place], [address], [facility] 06/21/2020 15:31:29 Past Encounters Encounter ID Performer Location Encounter Start Date Encounter Closed Date Diagnosis/Indication Diagnosis SNOMED-CT Code Diagnosis ICD10 Code Diagnosis Note [id number] [facility] ([facility]) [address] [facility] [place] [address] 09/12/2018 09:55:57 09/15/2018 11:28:23 Adult health examination 103657834 Z00.00 Pt doing well overall. We discussed the importance of regular exercise and healthy diet in managing weight. Also scheduled for cervical cancer screening next week. Hypothyroidism 67634828 E03.9 Will check levels today and adjust medication as indicated. Essential hypertension 69467344 I10 Elevated today. Advised pt that Bystolic is not a first line treatment for HTN, so will switch to Lisinopril and adjust as indicated based on BP next week. I encouraged a low sodium diet and regular exercise to better manage HTN. Systemic l upus erythematosus 18421370 M32.9 Pt has had recent flares despite continued dose of plaquenil and wishes to see a new rheumatolo gist. I will place a referral today. Chest pain 64552459 R07. 2 Pt's pain is atypical and not highly concerning for cardiac origin. She also had a normal EKG in office today. I advised that she try to get GERD under better control with diet modificati on and can consider cardiology referral if no improvemen t. Also advised to go to ER immediatel y if CP becomes severe or is associated with any other worrisome symptoms including diaphoresi s, N/V, SOB, etc. Pt expressed understand ing and agreed to do so. Active or passive immunization 141806501 Z23 [id number] [facility] ([facility]) [address] [place] [address] 09/15/2018 10:04:37 09/16/2018 13:39:53 Tuberculosis screening 382716277 Z11.1 [id number] A[facility] Dang [facility] ([facility]) [address] [place] [address] 09/17/2018 10:58:23 09/24/2018 10:38:44 Gynecologic examination 41515102 Z01.411 Routine manager merchandising exam, but scant yellow discharge noted. Specimens obtained for both pap and nuswab. Will contact pt with results when available. OCP for non-contraceptive use 207182138 Z30.011 Discussed various contracept abelardo options and pt would like to use OCP. I advised that OCP must be taken at the same time daily for maximum effectiven ess. Also encouraged condom use for STI prevention and calcium / vitamin d supplement . Negative test in office today. This is mainly being used for heavy periods as has had a vasectomy. [id number] AD[facility] ([facility]) [address] [place] [address] 11/10/2018 13:52:05 11/19/2018 11:13:32 Hypothyroidism 53381213 E03.9 Also due for TSH check. Will contact pt and adjust medication as indicated when results are available. Essential hypertension 50667861 I10 Has been poorly controlled based on home readings; will increase Lisinopril to 20mg and have pt continue to monitory. RTC if BP remains above 140/90. -Discussed lifestyle modificati ons including 150 minutes moderate intensity exercise per week, restrictin g intake of fast/proce ssed foods, sweets, sugary beverages. Contraception care 95102 5005 Z30.40 Discussed multiple control options and pt wishes to try another OCP. Can consider Depo-Prove ra, Nexplanon, etc if headaches persist. [id number] ANA Jones [facility] ([facility]) [address] [place] [address] 10/12/2019 13:13:43 10/12/2019 15:10:50 Essential hypertension 80593336 I10 At goal today with current medication s. Encouraged pt to maintain regular exercise and continue low salt, low fat diet. Discussed lifestyle modificati ons including 150 minutes moderate intensity exercise per week, restrictin g intake of fast/proce ssed foods, sweets, sugary beverages. Hypothyroidism 91810832 E03.9 Repeat TSH today and adjust medication as indicated. [id number] SARA Velasco FP ([facility]) [address] [facility] [address] 10/22/2019 14:36:09 10/23/2019 09:48:33 Common cold 54495282 J00 -tessalon for cough-usin g caution with OTC medication due to increased liver enzymes.-f /u with PCP if no improvemen t [id number] ANA Jones FP ([facility]) [address] [facility] [address] 06/21/2020 09:37:58 06/22/2020 09:56:01 History and physical examination, pre-employment 945284691 Z02.1 Pt advised that she is considered immunocomp romised with SLE and could be at greater risk of complicati ons of Covid because of this. 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 She has no physical restrictio ns and all requested tests/vacc dinesh were ordered today. Bilateral knee pain 1187 512704 1415636 M25.561 M25.562 Suspect bilateral meniscus tear based on significan t crepitus. Will request XR from [facility] and refer to ortho once available. May use voltaren gel as needed for pain. Pt would like to see [facility] ortho once XR are available. Active or passive immunization 649496509 Z23 Tuberculos is screening 168035585 Z11.1 [id number] ADOLFO Guy FP ([facility]) [address] [facility] [address] 11/11/2020 13:55:26 11/30/2020 13:19:10 Essential hypertension 03780433 I10 At goal today with current medication s. Encouraged pt to maintain regular exercise and continue low salt, low fat diet. Discussed lifestyle modificati ons including 150 minutes moderate intensity exercise per week, restrictin g intake of fast/proce ssed foods, sweets, sugary beverages. Hypothyroidism 32856871 E03.9 Repeat TSH today and adjust medication as indicated. [id number] ADOLFO Guy FP ([facility]) [address] [place] [address] 02/09/2021 10:45:14 02/09/2021 11:43:34 Acute maxillary sinusitis 73290937 J01.00 Will treat with Augmentin x 10 days. Use as directed. May use flonase and OTC medication s for congestion . Rest and plenty of fluids. RTC in 2 weeks if no improvemen t. Pt also advised to self isolate based on the following CDC recommenda tions: Although the risk that fully vaccinated people could become infected with COVID-19 is low, any fully vaccinated person who experience s symptoms consistent with COVID-19 should isolate themselves from others, be clinically evaluated for COVID-19, and tested for SARS-CoV-2 if indicated. Obesity 871516653 E66.9 [id number] ADOLFO Guy [facility] ([facility] [address]) [address] [place] [address] 06/20/2021 08:58:42 06/22/2021 18:11:00 Essential hypertension 93813732 I10 At goal today with current medication s. Encouraged pt to maintain regular exercise and continue low salt, low fat diet. Hypothyroidism 71593177 E03.9 Continue current dose of levothyrox ine, labs due in 11/2021. Obesity 703448063 E66.9 [id number] ADOLFO Guy FP ([facility] [address]) [address] [place] [address] 03/15/2022 09:35:01 03/23/2022 12:30:22 Hypothyroidism 32309331 E03.9 Continue current dose of levothyrox ine today and will check TSH. Essential hypertension 40405369 I10 At goal today with current medication s. Encouraged pt to maintain regular exercise and continue low salt, low fat diet. Uses oral contraception 7920145 Z30.41 Discussed various forms of control with pt and she wishes to proceed with starting OCP. Advised that OCP must be taken at the same time each day and if missed, should be taken as soon as possible. Also OCP do not prevent STI and should still use condoms. Also advised that OCP are less effective if/when taking antibiotic s but should be continued with another form of control such as condoms. Answered all pt questions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
[2025-02-26 17:05] LABS: Basophils Percent Auto 0.5 % (0.2-1.2); Hematocrit 37.1 % (37.0-47.0); Hemoglobin 12.5 g/dL (12.0-15.0); Immature Granulocyte Absolute 0.01 K/mm3 (0.00-0.031); Immature Granulocyte Percent A 0.2 % (0-0.5); Lymphocytes Percent Auto 23.1 % (18.3-44.2); Mean Corpuscular HGB Conc 33.7 g/dl (32-36); Mean Corpuscular Hemoglobin 30.3 pg (26-34); Mean Platelet Volume 9.4 fl (7.4-10.4); Monocytes Absolute Auto 0.6 K/mm3 (0.1-0.6); Monocytes Percent Auto 13.4 % (2.6-8.5); Neutrophils Absolute Auto 2.7 K/mm3 (1.3-6.7); Neutrophils Percent Auto 62.8 % (45.5-73.1); Platelet Count Result 304 k/mm3 (150-375); Red Blood Count 4.12 M/mm3 (4.2-5.4); Red Cell Distribution Width 13.5 % (11.5-14.5); White Blood Count 4.3 K/mm3 (4.5-10.0)
[2025-02-26 17:45] LABS: Vitamin D 25 Hydroxy 16.2 ng/mL
[2025-02-26 18:43] LABS: Free T4 Free Thyroxine Reflex 0.98 ng/dL (0.78-2.19)
[2025-02-26 19:23] LABS: Total Triiodothyronine (T3) 1.66 NG/ML (0.97-1.69)
[2025-02-28 01:58] LABS: Prolactin 14.5 ng/mL
== END 2025-02-26 16:40 | disposition home or self-care (01) ==
LOC: ANHLAB 16:42
PROVIDERS: PCP Physician Assistant; Visit Provider Nurse Practitioner Obstetrics & Gynecology
DX: N93.9 Abnormal uterine and vaginal bleeding, unspecified (principal)
CPT/HCPCS: 36415; 82306; 84146; 84439; 84443; 84480; 85025

== ENCOUNTER 2025-03-11 16:14 | Outpatient (CLI) | payer OTHER, SELFPAY ==
--- NOTE | ~2025-03-11 | US_ITS ---
EXAM: US pelvic complete w TV - 03/11/2025 16:30 CDT History: 44 years old Female with N93.9 - Abnormal uterine and vaginal bleeding, unspecified Comparison: None available. Technique Real time scanning of the pelvis was performed. Findings The uterus measures 8.3 x 4.2 x 4.9 cm. 2 cystic areas seen in the fundus, the largest of which measu res 0.5 x 0.5 x 0.4 cm. These likely represent endometrial cysts. There is a 0.2 cm echogenic focus s een in uterus, of uncertain significance. This may represent myometrial calcification. Endometrium is grossly unremarkable. The endometrial stripe measures 7 mm. The right ovary measures 2.0 x 1.2 x 2.2 cm. The left ovary measures 2.4 x 1.8 x 2.2 cm. Both ovaries have intact blood flow. Multiple dominant follicles are seen in both ovaries, the larges t of which on the right side measures 1.4 x 0.7 x 1.1 cm and on the left side measures 0.8 x 0.7 x 0. 9 seen. Multiple echogenic foci seen in left ovary, likely sequela of hemosiderin or calcium depositi on. There is no significant fluid in the cul-de-sac. Impression: 1. 0.2 cm echogenic focus in the uterus, of uncertain significance, may represent myometrial calcifi cation. 2. Left ovarian echogenic foci, likely sequelae of hemosiderin or calcium deposition. Attention on f ollow-up imaging. Reviewed, dictated and finalized at location A. Impression: 1. 0.2 cm echogenic focus in the uterus, of uncertain significance, may repres ent myometrial calcification. 2. Left ovarian echogenic foci, likely sequelae of hemosiderin or calcium depo sition. Attention on follow-up imaging.
--- OUTSIDE RECORDS SUMMARY | 2025-03-11 16:18 | XMS_ITS | Encounter Summary ---
Author Organization 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 Gender Identity Female 05/05/2019 3:52 PM CDT [...] on filedocumented in this encounter Care Teams Security Operations Center Operator Relationship Specialty Start Date End Date Cassidy Redmond MD [address] [facility] [place] [address] [place] [address] PCP - General 03/07/18 10/14/19 Barrington Pierce PA [address] [place] [address] [place] [address] PCP - General Physician Patient Services Technician 10/15/19 08/27/24 No, Physician PCP - General 11/02/24 Katie Whitehead MD [address] [facility] [address] [place] [address] Rheumatology 06/06/17 Horace Landers DPT [address] [facility] [place] [address] [place] [address] Physical Therapist Physical Therapy 05/16/20 documented as of this encounter
--- OUTSIDE RECORDS SUMMARY | 2025-03-11 16:18 | XMS_ITS | Encounter Summary ---
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 Gender Identity Female 05/05/2019 3:52 PM CDT [...] on filedocumented in this encounter Care Teams Chief Librarian Extension Department Relationship Specialty Start Date End Date Barrington Pierce PA [address] [facility] [address] [place] [address] PCP - General Physician Neck Band Operator 10/15/19 08/27/24 No, Physician PCP - General 11/02/24 Katie Whitehead MD [address] [facility] [address] [place] [address] Rheumatology 06/06/17 Horace Landers DPT [address] [facility] [address] [place] [address] Physical Therapist Physical Therapy 05/16/20 documented as of this encounter
--- OUTSIDE RECORDS SUMMARY | 2025-03-11 16:18 | XMS_ITS | Clinical Summary ---
Author Organization [facility] Address [address] [place] [address] Care Team Providers Care Is Support Analyst Name Role Phone Babatunde Pierce Primary Care [...] Date/Time Associated Diagnosis Comments MG SCREENING W JOSE KEANU DIGI Routine 02/10/2024 8:04 AM CDT [...] Ordered By: BABATUNDE PIERCE Interpreted By: Eduard Lucia, 02/10/2024 8:40 AM us Babatunde Pierce PA MAMMO Final Result from Last 3 Months or Most Recently Relevant to Health Maintenance Insurance [facility] Care Teams Is Support Analyst Relationship Specialty Start Date End Date Babatunde Pierce PA PCP - General PHYSICIAN GRAIN ELEVATOR OPERATOR 11/23/19
--- OUTSIDE RECORDS SUMMARY | 2025-03-11 16:18 | XMS_ITS | Referral Summary ---
Author Organization [facility] Address [address] [place] [address] Phone Care Team Providers Care Social Welfare Administrator Name Role Phone Katie Whitehead MD Unavailable [phone] Horace Landers DPT Unavailable [phone] No, Physician Primary Care Provider [phone] Allergies Active Allergy Reactions Criticality Noted Date [...] once a week 12 mL 5 Active belimumab (Benlysta) auto-injector Inject 1 mL (200 mg total) under the skin once a week 12 mL 5 03/10/20 25 Discontinu ed(Reorder ) Active Problems Problem Noted Date Diagnosed Date [...] on file 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 Gender Identity Female 05/05/2019 3:52 PM CDT Sexual Orientation Straight 05/05/2019 3: 52 PM CDT Last Filed Vital Signs Vital Sign Reading Time Taken Comments Blood Pressure 154/98 11/02/2024 1:09 PM LIFE SCIENCES DIRECTOR Pulse 96 11/02/2024 1:09 PM LIFE SCIENCES DIRECTOR Temperature 36.5 C (97.7 F) 11/02/2024 1:09 PM LIFE SCIENCES DIRECTOR Respiratory Rate 16 06/26/2022 1:50 PM CDT Oxygen Saturation 98% 11/02/2024 1:09 PM LIFE SCIENCES DIRECTOR Inhaled Oxygen Concentration - - Weight 100 kg (220 lb 6.4 oz) 11/02/2024 1:09 PM LIFE SCIENCES DIRECTOR Height 167.6 cm (5' 6 ) 11/02/2024 1:09 PM LIFE SCIENCES DIRECTOR Body Mass Index 35.57 11/02/2024 1:09 PM LIFE SCIENCES DIRECTOR Plan of Treatment Not on file Insurance [facility] [place] [address] [place] [address] CHOICE PLUS ANTHEM ACCESS ANTHEM TRADITIONAL BLUE ACCESS OOS [facility] NEXUS ThumbAd OOS Member Subscriber Plan / Payer (Ef fective 2020-Present) Name:Pushpa Chavez Relation to Subscriber:Self Name:PUSHPA CHAVEZ Payer ID:[id number] (NAIC) Type:[facility] Address: [address] [place] [id number] [facility] CHOICE PLUS Care Teams Social Welfare Administrator Relationship Specialty Start Date End Date No, Physician PCP - General 11/02/24 Katie Whitehead MD [address] [facility] [address] [place] [address] Rheumatology 06/06/17 Horace Landers DPT [address] [facility] [address] [place] [address] Physical Therapist Physical Therapy 05/16/20
--- OUTSIDE RECORDS SUMMARY | 2025-03-11 16:18 | XMS_ITS | Clinical Summary ---
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 Gender Identity Female 05/05/2019 3:52 PM CDT Sexual Orientation Straight 05/05/2019 3: 52 PM CDT Obstetrics History Last Filed Vital Signs Vital Sign Reading Time Taken Comments Blood Pressure 154/98 11/02/2024 1:09 PM DATABASE ADMINISTRATION PROJECT MANAGER Pulse 96 11/02/2024 1:09 PM DATABASE ADMINISTRATION PROJECT MANAGER Temperature 36.5 C (97.7 F) 11/02/2024 1:09 PM DATABASE ADMINISTRATION PROJECT MANAGER Respiratory Rate 16 06/26/2022 1:50 PM CDT Oxygen Saturation 98% 11/02/2024 1:09 PM DATABASE ADMINISTRATION PROJECT MANAGER Inhaled Oxygen Concentration - - Weight 100 kg (220 lb 6.4 oz) 11/02/2024 1:09 PM DATABASE ADMINISTRATION PROJECT MANAGER Height 167.6 cm (5' 6 ) 11/02/2024 1:09 PM DATABASE ADMINISTRATION PROJECT MANAGER Body Mass Index 35.57 11/02/2024 1:09 PM DATABASE ADMINISTRATION PROJECT MANAGER Plan of Treatment Health Maintenance Due Date [...] Modern a risk series) 02/23/2021 01/26/2021, 12/20/2020 Breast Cancer Screening-Mammogram 02/09/2025 02/10/2024, 02/10/2024 Influenza Vaccine (Season Ended) 2025 10/07/2018 DTaP/Tdap/Td Vaccine (3 - Td or Tdap) 06/21/2030 06/21/2020, 02/24/2007 HPV Vaccines Aged Out No longer eligi ble based on patient's age to complete this topic Insurance [facility] CHOICE [facility]US [facility] H[facility]PPO Address: [facility] [address] [place] [address] [facility]ICE [facility] H[facility]/PPO Address: [address] [address] [place] [address] ANTHEM ACCESS ANTHEM TRADITIONAL Member Subscriber Plan / Payer (Ef fective 2020-Present) Name:Pushpa Chavez Relation to Subscriber:Self Name:Pushpa Chavez Payer ID:[id number] (NAIC) Type:[employer] Address: [address] ACCESS OOS [facility] NEXUS [facility] HMO/PPO Address: [address] [place] [address] Kadriana OOS Member Subscriber Plan / Payer (Ef fective 2020-Present) Name:Pushpa Chavez Relation to Subscriber:Self Name:PUSHPA CHAVEZ Payer ID:[id number] (NAIC) Type: [employer] Address: [address] CHOICE PLUS [facility] HMO/PPO Address: [address] [address] [place] [address] Care Teams Pinked Edge Sewing Machine Operator Relationship Specialty Start Date End Date No, Physician PCP - General 11/02/24 Katie Whitehead MD [address] [facility] [address] [place] [address] Rheumatology 06/06/17 Horace Landers DPT [address] [facility] [address] [place] [address] Physical Therapist Physical Therapy 05/16/20
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
--- OUTSIDE RECORDS SUMMARY | 2025-03-11 16:18 | XMS_ITS | Clinical Summary ---
Author Organization [facility] Address [address] [place] [address] Care Team Providers Care Green End Department Supervisor Name Role Phone Barrington Pierce Primary Care Provider [phone] Source Comments [facility],non-owned Affiliates and Associated Physician Practices is amultiple site organization consisting of ambulatory clinics and hospital sitesin [place], [place], [place] and [place]. This disclosure is being madepursuant to the Care Everywhere program and may not contain all information available regarding this patient. Last updated 18.[facility] Allergies Active Allergy Reactions Criticality Noted Date [...] Comments Blood Pressure 118/76 10/22/2016 4:15 PM OPERATOR RECEPTIONIST Pulse 54 10/22/2016 4:15 PM OPERATOR RECEPTIONIST Temperature 37.1 C (98.7 F) 10/22/2016 4:15 PM OPERATOR RECEPTIONIST Respiratory Rate 16 10/22/2016 4:15 PM OPERATOR RECEPTIONIST Oxygen Saturation 96% 10/22/2016 4:15 PM OPERATOR RECEPTIONIST Inhaled Oxygen Concentration - - Weight 87.1 kg (192 lb) 10/22/2016 4:15 PM OPERATOR RECEPTIONIST Height 157.5 cm (5' 2 ) 10/22/2016 4:15 PM OPERATOR RECEPTIONIST Body Mass Index 35.12 10/22/2016 4:15 PM OPERATOR RECEPTIONIST Plan of Treatment Health Maintenance Due Date Last Done Comments LIPID TESTING 1980 MAMMOGRAM 1980 PAP SMEAR 1980 HIV SCREENING 1995 HEPATITIS C SCREENING 10/30/1998 DTAP/TDAP/TD VACCINES (1 - Tdap) 1999 HEPATITIS B VACCINE (1 of 3 - 19+ 3-dose series) 1999 COVID-19 VACCINE (1 - 2023-2 5 season) 2024 DEPRESSION SCREENING 12/02/2024 INFLUENZA VACCINE (Season Ended) 2025 ZOSTER VACCINE (1 of 2) 2030 HIB [...] age to complete this topic Care Teams Green End Department Supervisor Relationship Specialty Start Date End Date Barrington Pierce PA [address] [place] [id number] PCP - General 01/11/23
--- OUTSIDE RECORDS SUMMARY | 2025-03-11 16:18 | XMS_ITS | CONTINUITY OF CARE DOCUMENT ---
Author Name nichelle steward Address Unknown Organization [facility] Address [address] [place] [address] [address] [place] [address] Phone [phone] Care Team Providers Care Top Trimmer Name Role Phone Efren VITALE, Laurence Unavailable [phone] RAINA COOMBS MD Unavailable VITAL SIGNS Date Observation Value Provider blood pressure, diastolic 106 mm[Hg] Florez blood pressure, systolic 130 mm[Hg] Mathew Perdomo SOCIAL HISTORY Date Observation Value Provider smoking status never [place] FUNCTIONAL STATUS Date Observation Value Provider periodic limb movement index absent (0) Jun Joshi MD INSURANCE PROVIDERS Payer name Policy type / Coverage type Kamini red libertarian ID [facility] [employer] insurance [employer] [id number]
--- OUTSIDE RECORDS SUMMARY | 2025-03-11 16:18 | XMS_ITS | Encounter Summary ---
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 Gender Identity Female 05/05/2019 3:52 PM CDT [...] on filedocumented in this encounter Care Teams Turbine Assembler Relationship Specialty Start Date End Date Barrington Pierce PA [address] [facility] [address] [place] [address] PCP - General Physician Tool Filer 10/15/19 08/27/24 No, Physician PCP - General 11/02/24 Katie Whitehead MD [address] [facility] [address] [place] [address] Rheumatology 06/06/17 Horace Landers DPT [address] [facility] [address] [place] [address] Physical Therapist Physical Therapy 05/16/20 documented as of this encounter
== END 2025-03-11 16:15 | disposition home or self-care (01) ==
PROVIDERS: PCP Physician Assistant; Visit Provider Nurse Practitioner Obstetrics & Gynecology
DX: R93.89 Abnormal findings on diagnostic imaging of other specified body structures (principal)
CPT/HCPCS: 76830; 76856